=== PATIENT | female | born 1970 | race Caucasian/White ===

== ENCOUNTER → 2017-06-17 12:58 | Outpatient (CLI) | payer OTHER, SELFPAY ==
--- NOTE | 2017-06-17 13:03 | BI_ITS ---
MAMMOGRAPHY - BILATERAL SCREENING REASON FOR EXAM: Female, 46 years old. Routine annual screening examination. PERTINENT HISTORY: Reason for Procedure (BI), FM HX MAT GRANDFATHER AGE 70'S , RT STEREO BX 2006 TECHNIQUE: Digital bilateral breast giorgio (3D mammographic acquisition) in the CC and MLO projections. 2-D mediolateral oblique (MLO) and craniocaudad (CC) views of both breasts were obtained. CAD: Full Field Digital Mammography with Computer Added Detection was performed. COMPARISON: None. FINDINGS: Breast Composition: The breasts are heterogeneously dense, which may obscure small masses. There is an asymmetric density with architectural distortion in the far posterior central part of the right breast noted on the MLO view for which further evaluation by spot compression views and ultrasound would be recommended. There are no suspicious calcifications. No other significant abnormalities are identified. BI/SCREENING MAMM (CAD), BILAT IMPRESSION: Further imaging evaluation recommended, as described above. (E) ASSESSMENT CATEGORY: BIRADS Category 0: Incomplete. Need additional imaging evaluation. A letter regarding these results will be sent to the patient by the facility within 30 days. Approximately 10% of breast cancers are not detected by mammography. A normal mammogram should not delay biopsy of a clinically suspicious abnormality. [id number] Electronically Signed: Nessa Garza MD at 13:09 EDT Tel , Service support ,
== END ==
PROVIDERS: Visit Provider Obstetrics & Gynecology
DX: Z12.31 Encounter for screening mammogram for malignant neoplasm of breast (principal)
CPT/HCPCS: 77063; 77067

== ENCOUNTER → 2017-06-26 08:04 | Outpatient (CLI) | payer OTHER, SELFPAY ==
--- NOTE | 2017-06-26 08:07 | BI_ITS ---
MAMMOGRAPHY - UNILATERAL DIAGNOSTIC: RIGHT BREAST REASON FOR EXAM: Female, 46 years old. Abnormal screening mammogram. PERTINENT HISTORY: Non-contributory. TECHNIQUE: A compression spot view of the right breast was obtained in the mediolateral oblique view. CAD: Full Field Digital Mammography with Computer Added Detection was performed. COMPARISON: Comparison is made with prior mammogram dated June 17, 2017. FINDINGS: Breast Composition: The breasts are heterogeneously dense, which may obscure small masses. The focal area of architectural distortion in the far posterior central portion of the right breast is not seen on this examination. Routine annual mammographic follow-up is recommended. No other significant abnormalities are identified. BI/DIAG MAMM W/CAD, UNILAT IMPRESSION: Stable unilateral diagnostic mammogram. One year follow-up mammogram recommended. (A) ASSESSMENT CATEGORY: BIRADS Category 2: Benign. A letter regarding these results will be sent to the patient by the facility within 30 days. Approximately 10% of breast cancers are not detected by mammography. A normal mammogram should not delay biopsy of a clinically suspicious abnormality. Electronically Signed: Lebron Vela MD at 10:38 EDT Tel [phone], Service support ,
== END ==
PROVIDERS: Visit Provider Obstetrics & Gynecology
DX: R92.8 Other abnormal and inconclusive findings on diagnostic imaging of breast (principal)
CPT/HCPCS: 77065

== ENCOUNTER 2017-10-16 12:22 | Day surgery (SDC) | payer OTHER, SELFPAY ==
[2017-10-16] VITALS (7 sets, daily range): BP systolic 95–106; BP diastolic 48–66; PULSE 69–82; RESP 16; TEMP 36.6–37.1; O2SAT 92–99; BMI 27.6
--- NOTE | 2017-10-16 | COLBX_PTH ---
PATIENT: FABIOLA TAYLOR LOC: EN U#:[id number] AGE/SX: 47/F ROOM: RE10/16/[address]: Dr. Bharat Dee MD : 1970 BED: DIS: 10/16/2017 SPEC #: [id number] RECD: 10/17/17 09:14 STATUS: KATHLEEN JUANA #: [id number] MALIK: 10/16/17 00:[address]: Bharat Dee DEPT: SURGICAL PATHOLOGY RECD BY: Jacob Hanks ENTERED: 10/17/17 09:15 SP TYPE: COLON BX SAM DR: Dr. Salvatore Gonzales MD Tissues: COLON BIOPSY Procedures: Surgery Specimen Level IV HEADER OPERATION: Colonoscopy PRE-OP DIAGNOSIS: Change in bowel habits; family history of colon cancer TISSUE SUBMITTED: Random colonic biopsies MICROSCOPIC DIAGNOSIS Colon, random biopsy: No significant pathologic change. No evidence of colitis. AM:carlos 10/18/17 MICROSCOPIC DESCRIPTION Slides are reviewed. GROSS DESCRIPTION Received in fixative is one container labeled with the patient's name and designated random colon biopsy. The specimen consists of multiple irregular fragments of light bonner soft tissue that in aggregate measure 1.5 x 0.7 x 0.1 cm. The specimen is totally submitted in one cassette. / AM:carlos 10/17/17 TC:5 CPT: 31040
--- NOTE | 2017-10-16 13:17 | PCM.OPRPT ---
Problem List (1) Family history of colon cancer Status: Acute (2) Lower abdominal pain Status: Acute (3) Change in bowel habits Status: Acute Report of Operation Date of Procedure: 10/16/17 Pre-Operative Diagnosis: Family history of colon cancer. Lower abdominal pain. Change in bowel habits Post-Operative Diagnosis: Same Surgery/Procedure Performed:: Colonoscopy with cold biopsies (random) Type of Anesthesia:: MAC Description of Procedure: Patient was brought into the endoscopy suite placed in the left lateral decubitus position. She was given graded anesthesia. Colonoscope was inserted into the rectum. It was directed through the sigmoid colon, descending colon, transverse colon, descending colon, to the cecum. Operative findings: 1. Cecum: Normal appearance no mass lesions normal ileocecal valve. 2. Ascending colon: Normal appearance no mass lesions. 3. Transverse colon: Normal appearance no mass lesions. 4. Descending colon: Normal appearance no mass lesions. 5. Sigmoid colon: Normal appearance minimal diverticular disease seen mostly smaller diverticulum a few large mouth diverticulum there was no narrowing of the sigmoid colon there were no mass lesions. 6. Rectum: Normal appearance no mass lesions few internal hemorrhoids were identified. Digital rectal exam did not reveal any masses within the anus. Random colonic biopsies were performed from the cecum to the rectum. For all intensive purposes and entirely normal colonoscopy with no abnormalities identified to explain the lower abdominal discomfort. - Admit VTE Documentation VTE Present on Admission: No VTE Mechan Device Prophylaxis: None VTE Pharm Prophylaxis ordered?: No Reason prophylaxis not ordered:: Treatment Not Indicated
== END 2017-10-16 14:19 | disposition home or self-care (01) ==
LOC: EN 12:23 → AC 12:24
PROVIDERS: Family Provider Internal Medicine; PCP Internal Medicine; Visit Provider Surgery
PROC: 0DJD8ZZ Inspection of Lower Intestinal Tract, Via Natural or Artificial Opening Endoscopic (ICD-10-PCS; CPT 45378; principal; 2017-10-16 13:25)
DX: K57.30 Diverticulosis of large intestine without perforation or abscess without bleeding (principal); D64.9 Anemia, unspecified; Z80.0 Family history of malignant neoplasm of digestive organs; Z85.828 Personal history of other malignant neoplasm of skin; Z87.891 Personal history of nicotine dependence
CPT/HCPCS: 45380; 88305; J7120

== ENCOUNTER → 2018-07-18 07:17 | Outpatient (CLI) | payer OTHER, SELFPAY ==
--- NOTE | 2018-07-18 07:32 | BI_ITS ---
MAMMOGRAPHY - BILATERAL SCREENING REASON FOR EXAM: Female, 47 years old. Routine annual screening examination. PERTINENT HISTORY: Grandfather with breast cancer. Prior right stereotactic breast biopsy. TECHNIQUE: Digital bilateral breast светлана (3D mammographic acquisition) in the CC and MLO projections. 2-D mediolateral oblique (MLO) and craniocaudad (CC) views of both breasts were obtained. CAD: Full Field Digital Mammography with Computer Added Detection was performed. COMPARISON: Comparison is made with prior study dated June 17, 2017 and June 26, 2017. FINDINGS: Breast Composition: The breasts are heterogeneously dense, which may obscure small masses. There are no dominant masses or suspicious calcifications. A tissue clip marker is seen in the axillary region of the right breast from prior biopsy. This is unchanged. No other significant abnormalities are identified. There has been no significant change since the prior study. BI/SCREEN MAMM (CAD) W/СВЕТЛАНА BILAT IMPRESSION: Stable bilateral screening mammogram. Yearly follow-up mammogram recommended. (A) ASSESSMENT CATEGORY: BIRADS Category 2: Benign. A letter regarding these results will be sent to the patient by the facility within 30 days. Approximately 10% of breast cancers are not detected by mammography. A normal mammogram should not delay biopsy of a clinically suspicious abnormality. [id number] Electronically Signed: Lebron Vela, at 10:00 EDT , Service support ,
== END ==
PROVIDERS: Family Provider Internal Medicine; PCP Internal Medicine; Referring Provider Obstetrics & Gynecology; Visit Provider Obstetrics & Gynecology
DX: Z12.31 Encounter for screening mammogram for malignant neoplasm of breast (principal)
CPT/HCPCS: 77063; 77067

== ENCOUNTER → 2018-10-15 | Outpatient (CLI) | payer OTHER, SELFPAY ==
[2018-10-14 08:31] VITALS: BMI 26.3
[2018-10-15 12:10] LABS: Absolute Lymphocyte Count 1.77 X10^3/uL (0.83-4.51); Absolute Neutrophil Count 3.9 X10^3/uL (2.0-7.7); Basophil# 0.04 X10^3/uL; Basophil% 0.6 % (0-1); Eosinophils% 1.6 % (0-5); Hematocrit 39.9 % (37-47); Hemoglobin 12.5 g/dL (12.0-15.0); Lymphocyte # 1.77 X10^3/ul (4.0); Lymphocyte % 28.3 % (19-41); Mean Corp Hgb Conc 31.3 g/dL (32-36); Mean Corpuscular Hgb 27.4 pg (27.0-32.0); Mean Corpuscular Volume 87.3 fL (81-99); Mean Platelet Vol. 10.2 fl (6.2-12.0); Monocyte# 0.42 X10^3/uL; Monocyte% 6.7 % (0-10); NRBC Flagged by Analyzer 0 % (0-5); Neutrophil # 3.91 X10^3/uL (2.7-7.7); Neutrophil % 62.5 % (47-70); Platelet Count 231 K/mm3 (150-450); RBC Distribution Width CV 13.3 % (11.6-14.6); RBC Distribution Width SD 42.3 fl (35.1-43.9); Red Blood Count 4.57 M/mm3 (4.2-5.4); White Blood Count 6.3 K/mm3 (4.4-11.0)
[2018-10-15 12:30] LABS: AST(SGOT) 14 U/L (15-37); Alanine Aminotransfer ALT/SGPT 32 U/L (13-56); Albumin, Serum 3.9 g/dL (3.2-5.0); Alkaline Phosphatase 97 U/L (45-117); Anion Gap 8 (5-15); BUN 12 mg/dL (7-18); BUN/Creat Ratio 15.8 RATIO (10-20); Chloride 104 mmol/L (98-107); Cholesterol 225 mg/dL (200); Creatinine, Serum 0.76 mg/dL (0.55-1.02); EST Glomerular Filtration Rate 86 mL/min (>60); Est Glom Filt Rate - Afr Amer 104 mL/min (>60); Globulin 3.9 g/dL (2.2-4.2); Glucose 84 mg/dL (74-106); High Density Lipoprotein 74 mg/dL; Protein, Total 7.8 g/dL (6.4-8.2); Sodium Level 140 mmol/L (136-145); Triglycerides 111 mg/dL; Very Low Density Lipoprotein 22 mg/dL (5-40)
== END | disposition home or self-care (01) ==
LOC: BIMLAB 08:10
PROVIDERS: Family Provider Internal Medicine; PCP Internal Medicine; Visit Provider Internal Medicine
DX: Z00.00 Encounter for general adult medical examination without abnormal findings (principal)
CPT/HCPCS: 36415; 80053; 80061; 85025

== ENCOUNTER → 2019-02-19 09:29 | Outpatient (CLI) | payer OTHER, SELFPAY ==
[2019-02-19 09:08] VITALS: BMI 27.2
[2019-02-19 12:21] LABS: Hemoglobin 11.6 g/dL (12.0-15.0); Mean Corp Hgb Conc 32.2 g/dL (32-36); Mean Corpuscular Hgb 28.3 pg (27.0-32.0); Mean Corpuscular Volume 87.8 fL (81-99); Mean Platelet Vol. 9.9 fl (6.2-12.0); Platelet Count 265 K/mm3 (150-450); RBC Distribution Width CV 13.4 % (11.6-14.6); White Blood Count 5.7 K/mm3 (4.4-11.0)
[2019-02-19 12:39] LABS: Vitamin D,25 Hydroxy 16.9 ng/mL (29.95-100.01)
[2019-02-19 12:42] LABS: ALB/GLOB Ratio 1.1 RATIO (0.9-2.4); AST(SGOT) 14 U/L (15-37); Alanine Aminotransfer ALT/SGPT 29 U/L (13-56); Albumin, Serum 3.9 g/dL (3.2-5.0); Alkaline Phosphatase 90 U/L (45-117); Anion Gap 3 (5-15); BUN 10 mg/dL (7-18); BUN/Creat Ratio 13.7 RATIO (10-20); Calcium,Total 8.7 mg/dL (8.5-10.1); Chloride 106 mmol/L (98-107); Creatinine, Serum 0.73 mg/dL (0.55-1.02); EST Glomerular Filtration Rate 90 mL/min (>60); Est Glom Filt Rate - Afr Amer 109 mL/min (>60); Globulin 3.6 g/dL (2.2-4.2); Glucose 73 mg/dL (74-106); Potassium 4.2 mmol/L (3.5-5.1); Protein, Total 7.5 g/dL (6.4-8.2); Sodium Level 139 mmol/L (136-145); Thyroid Stim Hormone (TSH) 1.24 uIU/mL (0.358-3.74)
== END ==
PROVIDERS: Family Provider Internal Medicine; PCP Internal Medicine; Visit Provider Nurse Practitioner Family
DX: E56.9 Vitamin deficiency, unspecified (principal); R53.83 Other fatigue
CPT/HCPCS: 36415; 80053; 82306; 84443; 85027

== ENCOUNTER → 2019-07-20 | Outpatient (CLI) | payer OTHER, SELFPAY ==
[2019-03-31 09:27] VITALS: BMI 26.8
--- NOTE | 2019-07-20 08:03 | BI_ITS ---
MAMMOGRAPHY - BILATERAL SCREENING REASON FOR EXAM: Female, 48 years old. Routine annual screening examination. PERTINENT HISTORY: Remote right stereotactic breast biopsy. Grandfather with breast cancer. TECHNIQUE: Digital bilateral breast светлана (3D mammographic acquisition) in the CC and MLO projections. 2-D mediolateral oblique (MLO) and craniocaudad (CC) views of both breasts were obtained. CAD: Full Field Digital Mammography with Computer Added Detection was performed. COMPARISON: Comparison is made with prior examination dated July 18, 2018 and June 17, 2017. FINDINGS: Breast Composition: The breasts are heterogeneously dense, which may obscure small masses. There are no dominant masses or suspicious calcifications. A tissue clip marker is once again seen in the deep upper lateral portion of the right breast. No other significant abnormalities are identified. There has been no significant change since the prior study. BI/SCREEN MAMM (CAD) W/СВЕТЛАНА BILAT IMPRESSION: Stable bilateral screening mammogram. Yearly follow-up mammogram recommended. (A) ASSESSMENT CATEGORY: BIRADS Category 2: Benign. A letter regarding these results will be sent to the patient by the facility within 30 days. Approximately 10% of breast cancers are not detected by mammography. A normal mammogram should not delay biopsy of a clinically suspicious abnormality. [id number] Electronically Signed: Lebron Vela, at 9:16 EDT , Service support ,
== END | disposition home or self-care (01) ==
LOC: OPBI 08:03
PROVIDERS: PCP Internal Medicine; Referring Provider Obstetrics & Gynecology; Visit Provider Obstetrics & Gynecology
DX: Z12.31 Encounter for screening mammogram for malignant neoplasm of breast (principal)
CPT/HCPCS: 77063; 77067

== ENCOUNTER → 2020-07-25 07:03 | Outpatient (CLI) | payer OTHER, SELFPAY ==
[2019-09-01 08:29] VITALS: BMI 27.2
--- NOTE | 2020-07-25 07:06 | BI_ITS ---
MAMMOGRAPHY - BILATERAL SCREENING REASON FOR EXAM: Female, 49 years old. Routine annual screening examination. PERTINENT HISTORY: Grandfather with breast cancer. Prior right stereotactic breast biopsy. TECHNIQUE: Digital bilateral breast светлана (3D mammographic acquisition) in the CC and MLO projections. 2-D mediolateral oblique (MLO) and craniocaudad (CC) views of both breasts were obtained. CAD: Full Field Digital Mammography with Computer Added Detection was performed. COMPARISON: Comparison is made with prior study dated 07/20/2019 and 07/18/2018. FINDINGS: Breast Composition: The breasts are heterogeneously dense, which may obscure small masses. There are no dominant masses or suspicious calcifications. A patient clip markers once again seen in the upper lateral portion of the right breast. Stable asymmetry of breast tissue were more breast tissue is seen in the axillary region of the left breast as compared to the right side. No other significant abnormalities are identified. There has been no significant change since the prior study. BI/SCRN MAMM (CAD)W/СВЕТЛАНА BILAT IMPRESSION: Stable bilateral screening mammogram. Yearly follow-up mammogram recommended. (A) ASSESSMENT CATEGORY: BIRADS Category 2: Benign. A letter regarding these results will be sent to the patient by the facility within 30 days. Approximately 10% of breast cancers are not detected by mammography. A normal mammogram should not delay biopsy of a clinically suspicious abnormality. [id number] Electronically Signed: Lebron Vela MD at 9:44 EDT , Service support ,
== END ==
PROVIDERS: PCP Internal Medicine; Referring Provider Nurse Practitioner Women's Health; Visit Provider Nurse Practitioner Women's Health
DX: Z12.31 Encounter for screening mammogram for malignant neoplasm of breast (principal)
CPT/HCPCS: 77063; 77067

== ENCOUNTER → 2020-11-01 16:04 | Outpatient (CLI) | payer OTHER, SELFPAY ==
[2020-11-01 16:56] LABS: Absolute Lymphocyte Count 2.14 X10^3/uL (0.83-4.51); Absolute Neutrophil Count 4.4 X10^3/uL (2.0-7.7); Basophil# 0.04 X10^3/uL; Basophil% 0.6 % (0-1); Eosinophil# 0.11 X10^3/uL; Eosinophils% 1.5 % (0-5); Hematocrit 41.9 % (37-47); Hemoglobin 13.6 g/dL (12.0-15.0); Lymphocyte # 2.14 X10^3/ul (0.83-4.51); Lymphocyte % 30.1 % (19-41); Mean Corp Hgb Conc 32.5 g/dL (32-36); Mean Corpuscular Hgb 29.3 pg (27.0-32.0); Mean Corpuscular Volume 90.3 fL (81-99); Mean Platelet Vol. 9.6 fl (6.2-12.0); Monocyte# 0.43 X10^3/uL; Monocyte% 6.1 % (0-10); NRBC Flagged by Analyzer 0 % (0-5); Neutrophil # 4.35 X10^3/uL (2.7-7.7); Neutrophil % 61.3 % (47-70); Platelet Count 257 K/mm3 (150-450); RBC Distribution Width CV 13.6 % (11.6-14.6); RBC Distribution Width SD 44.2 fl (35.1-43.9); Red Blood Count 4.64 M/mm3 (4.2-5.4); White Blood Count 7.1 K/mm3 (4.4-11.0)
[2020-11-01 17:36] LABS: Vitamin D,25 Hydroxy 32.9 ng/mL
[2020-11-01 17:46] LABS: ALB/GLOB Ratio 1.1 RATIO (0.9-2.4); AST(SGOT) 26 U/L (15-37); Alanine Aminotransfer ALT/SGPT 46 U/L (13-56); Alkaline Phosphatase 116 U/L (45-117); Anion Gap 6 (5-15); BUN 8 mg/dL (7-18); BUN/Creat Ratio 11.8 RATIO (10-20); Calcium,Total 9.2 mg/dL (8.5-10.1); Chloride 102 mmol/L (98-107); Cholesterol 264 mg/dL (200); Creatinine, Serum 0.68 mg/dL (0.55-1.02); EST Glomerular Filtration Rate 98 mL/min (>60); Est Glom Filt Rate - Afr Amer 118 mL/min (>60); Globulin 3.8 g/dL (2.2-4.2); Glucose 80 mg/dL (74-106); High Density Lipoprotein 64 mg/dL; Potassium 3.6 mmol/L (3.5-5.1); Protein, Total 7.8 g/dL (6.4-8.2); Sodium Level 138 mmol/L (136-145); Thyroid Stim Hormone (TSH) 1.85 uIU/mL (0.358-3.74); Triglycerides 186 mg/dL; Very Low Density Lipoprotein 37 mg/dL (5-40)
== END ==
PROVIDERS: PCP Internal Medicine; Referring Provider Nurse Practitioner Family; Visit Provider Nurse Practitioner Family
DX: D64.9 Anemia, unspecified (principal); E56.9 Vitamin deficiency, unspecified; Z00.00 Encounter for general adult medical examination without abnormal findings
CPT/HCPCS: 36415; 80053; 80061; 82306; 84443; 85025

== ENCOUNTER → 2020-12-05 | Outpatient (CLI) | payer OTHER, SELFPAY ==
[2020-12-05 14:44] LABS: Probe Check ND; Specimen Processing Control ND
== END | disposition home or self-care (01) ==
LOC: LABSPEC 10:42
PROVIDERS: PCP Internal Medicine; Referring Provider Physician Assistant Surgical; Visit Provider Physician Assistant Surgical
DX: U07.1 COVID-19 (principal)
CPT/HCPCS: 87635; U0005; U0003

== ENCOUNTER 2020-12-08 16:49 | Outpatient (CLI) | payer OTHER, SELFPAY ==
[2020-12-08 16:56] VITALS: BP 126/89; PULSE 97; RESP 14; TEMP 37; O2SAT 97; BMI 26.9
[2020-12-08] MEDS: 0.9% Saline Lock 10 ML Syringe IV (16:56)
[2020-12-08 17:55] VITALS: BP 110/75; PULSE 80; RESP 16; TEMP 36.7; O2SAT 96
[2020-12-08 19:04] VITALS: BP 110/79; PULSE 73; RESP 16; TEMP 36.9; O2SAT 98
== END 2020-12-08 18:55 | disposition home or self-care (01) ==
LOC: MS3OUT 16:50 → MS3 16:50
PROVIDERS: PCP Internal Medicine; Referring Provider Nurse Practitioner Adult Health; Visit Provider Nurse Practitioner Adult Health
DX: Z23 Encounter for immunization (principal); U07.1 COVID-19
CPT/HCPCS: J7050; M0243; A4216; Q0244

== ENCOUNTER → 2021-02-03 14:44 | Outpatient (CLI) | payer OTHER, SELFPAY ==
[2021-02-03 14:45] LABS: Bacteria 0 SEEN /hpf (None Seen); Mucous, Urine 0 SEEN /hpf (<or=2+); Squamous Epithelial Cells - UA 0 SEEN /hpf (5-10); White Blood Cells 0 SEEN /hpf (0-5)
[2021-02-03 16:40] LABS: Color, Urine Yellow (Yellow); Glucose, Dipstick Normal (Normal); Ketone-Dipstick Negative (Negative); Leukocyte Esterase-Dipstick Negative /ul (Negative); Nitrite-Dipstick Negative (Negative); Occult Blood-Urine 10 /ul (Negative); Protein-Dipstick Negative (Negative); Urine Bilirubin Dipstick Negative (Negative); Urine Clarity Clear (Clear); Urine Urobilinogen Normal (Normal); Urine pH 6.5 (5.0 - 8.0)
[2021-02-03 16:50] LABS: Red Blood Cells-Urine 0-5 SEEN /hpf (0-5)
[2021-02-03 16:55] LABS: Absolute Lymphocyte Count 2.12 X10^3/uL (0.83-4.51); Absolute Neutrophil Count 4.5 X10^3/uL (2.0-7.7); Basophil# 0.03 X10^3/uL; Basophil% 0.4 % (0-1); Eosinophil# 0.12 X10^3/uL; Eosinophils% 1.7 % (0-5); Hemoglobin 11.2 g/dL (12.0-15.0); Lymphocyte # 2.12 X10^3/ul (0.83-4.51); Lymphocyte % 29.4 % (19-41); Mean Corp Hgb Conc 32.9 g/dL (32-36); Mean Corpuscular Hgb 30.4 pg (27.0-32.0); Mean Corpuscular Volume 92.4 fL (81-99); Mean Platelet Vol. 9.7 fl (6.2-12.0); Monocyte# 0.45 X10^3/uL; Monocyte% 6.2 % (0-10); NRBC Flagged by Analyzer 0 % (0-5); Neutrophil # 4.49 X10^3/uL (2.7-7.7); Neutrophil % 62.2 % (47-70); Platelet Count 261 K/mm3 (150-450); Red Blood Count 3.68 M/mm3 (4.2-5.4); White Blood Count 7.2 K/mm3 (4.4-11.0)
[2021-02-03 17:04] LABS: AST(SGOT) 15 U/L (15-37); Alanine Aminotransfer ALT/SGPT 29 U/L (13-56); Albumin, Serum 3.7 g/dL (3.2-5.0); Alkaline Phosphatase 105 U/L (45-117); Amylase 32 U/L (25-115); Anion Gap 5 (5-15); BUN 8 mg/dL (7-18); Chloride 108 mmol/L (98-107); Creatinine, Serum 0.67 mg/dL (0.55-1.02); EST Glomerular Filtration Rate 99 mL/min (>60); Est Glom Filt Rate - Afr Amer 120 mL/min (>60); Globulin 3.6 g/dL (2.2-4.2); Glucose 105 mg/dL (74-106); Lipase 92 U/L (73-393); Potassium 3.8 mmol/L (3.5-5.1); Protein, Total 7.3 g/dL (6.4-8.2); Sodium Level 141 mmol/L (136-145); Thyroid Stim Hormone (TSH) 1.46 uIU/mL (0.358-3.74)
== END ==
PROVIDERS: PCP Internal Medicine; Visit Provider Physician Assistant
DX: R10.9 Unspecified abdominal pain (principal); R19.7 Diarrhea, unspecified
CPT/HCPCS: 36415; 80053; 81001; 82150; 83690; 84443; 85025; 87635; U0005; U0003

== ENCOUNTER 2021-03-17 07:57 | Outpatient (CLI) | payer OTHER, SELFPAY ==
--- NOTE | 2021-03-17 08:00 | US_ITS ---
STUDY: ABDOMINAL ULTRASOUND REASON FOR EXAM: Female, 50 years old. Abdominal pain TECHNIQUE: Transabdominal ultrasound was performed with real-time and static beckford scale imaging. TECHNICAL QUALITY: Adequate. COMPARISON: None. FINDINGS: Liver: The liver measures 15.4 cm. There is normal echogenicity of the liver. The bile ducts are within normal limits. There is hepatic color flow. The direction of portal flow is hepatopetal. There is no demonstrated mass lesion. Gallbladder: Normal distended gallbladder. The gallbladder wall measures 3 mm. There is a negative sonographic Harkins''s sign. There is no pericholecystic fluid. There are no gallstones. Common Bile Duct (C.B.D.): The common bile duct measures 6 mm. Pancreas: Normal size of the head, body and tail of the pancreas. There is normal echogenicity of the pancreas. There is no demonstrated pancreatic mass or cyst. Spleen: Normal size of the spleen. The spleen measures 8.8 cm x 4.9 cm x 2.8 cm. Right Kidney: Normal size of the right kidney. The right kidney measures 11.2 cm x 5.3 cm x 4.4 cm. Normal renal cortex. The right cortex measures 1.2 cm. There is no demonstrated renal mass or cyst. There is no right hydronephrosis. Left Kidney: Normal size of the left kidney. The left kidney measures 10.6 cm x 4.8cm x 5.1 cm. Normal renal cortex. The left cortex measures 1.4 cm. There is a 4 mm x 4 mm x 5 mm well-defined echogenic nodule in the upper pole of the left kidney. This may represent a small angiomyolipoma. There is no left hydronephrosis. Aorta: Unremarkable. I.V.C.: The IVC is patent. There is no ascites. 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 No other abnormality is seen. Electronically Signed: Lebron Vela MD at 11:00 EST ,
== END 2021-03-17 23:59 | disposition short-term general hospital (02) ==
LOC: US 07:59
PROVIDERS: PCP Internal Medicine; Referring Provider Internal Medicine; Visit Provider Internal Medicine
DX: R10.31 Right lower quadrant pain (principal); G89.29 Other chronic pain
CPT/HCPCS: 76700

== ENCOUNTER 2021-04-18 08:45 | Outpatient (CLI) | payer OTHER, SELFPAY ==
[2021-04-18 12:26] LABS: Absolute Lymphocyte Count 1.92 X10^3/uL (0.83-4.51); Absolute Neutrophil Count 3.4 X10^3/uL (2.0-7.7); Basophil# 0.03 X10^3/uL; Basophil% 0.5 % (0-1); Eosinophil# 0.06 X10^3/uL; Hematocrit 41.9 % (37-47); Hemoglobin 13.5 g/dL (12.0-15.0); Lymphocyte # 1.92 X10^3/ul (0.83-4.51); Lymphocyte % 33.2 % (19-41); Mean Corp Hgb Conc 32.2 g/dL (32-36); Mean Corpuscular Hgb 29.3 pg (27.0-32.0); Mean Corpuscular Volume 91.1 fL (81-99); Mean Platelet Vol. 9.8 fl (6.2-12.0); Monocyte# 0.32 X10^3/uL; Monocyte% 5.5 % (0-10); NRBC Flagged by Analyzer 0 % (0-5); Neutrophil # 3.44 X10^3/uL (2.7-7.7); Neutrophil % 59.5 % (47-70); Platelet Count 232 K/mm3 (150-450); RBC Distribution Width CV 12.2 % (11.6-14.6); RBC Distribution Width SD 40.3 fl (35.1-43.9); White Blood Count 5.8 K/mm3 (4.4-11.0)
[2021-04-18 12:48] LABS: Vitamin B12 1446 pg/mL (211-911)
[2021-04-18 13:44] LABS: Ferritin 97 ng/mL (8-252); Iron 69 ug/dL (50-170); Iron Binding Capacity,Total 344 ug/dL (250-450)
== END 2021-04-18 23:59 | disposition home or self-care (01) ==
LOC: BIMLAB 08:46
PROVIDERS: PCP Internal Medicine; Referring Provider Internal Medicine; Visit Provider Internal Medicine
DX: D64.9 Anemia, unspecified (principal)
CPT/HCPCS: 36415; 82607; 82728; 82746; 83540; 83550; 85025

== ENCOUNTER → 2021-07-28 | Outpatient (CLI) | payer OTHER, SELFPAY ==
--- NOTE | 2021-07-28 12:20 | BI_ITS ---
MAMMOGRAPHY - BILATERAL SCREENING REASON FOR EXAM: Female, 50 years old. Routine annual screening examination. PERTINENT HISTORY: Grandfather with breast cancer. Prior right''s stereotactic breast biopsy. TECHNIQUE: Digital bilateral breast светлана (3D mammographic acquisition) in the CC and MLO projections. 2-D mediolateral oblique (MLO) and craniocaudad (CC) views of both breasts were obtained. CAD: Full Field Digital Mammography with Computer Added Detection was performed. COMPARISON: Screening mammograms from 07/25/2020, 07/20/2019, 07/18/2018, 06/17/2017. Right breast diagnostic mammogram from 06/26/2017. FINDINGS: Breast Composition: The breasts are heterogeneously dense, which may obscure small masses. There are no dominant masses or suspicious calcifications. Stable biopsy marker in the right breast. No other significant abnormalities are identified. There has been no significant change since the prior study. BI/SCRN MAMM (CAD)W/СВЕТЛАНА BILAT IMPRESSION: Stable bilateral screening mammogram. Yearly follow-up mammogram recommended. (A) ASSESSMENT CATEGORY: BIRADS Category 2: Benign. A letter regarding these results will be sent to the patient by the facility within 30 days. Approximately 10% of breast cancers are not detected by mammography. A normal mammogram should not delay biopsy of a clinically suspicious abnormality. [id number] Electronically Signed: Carlos Salmeron, at 8:22 EDT ,
== END | disposition home or self-care (01) ==
LOC: OPBI 12:19
PROVIDERS: PCP Internal Medicine; Referring Provider Nurse Practitioner Women's Health; Visit Provider Nurse Practitioner Women's Health
DX: Z12.31 Encounter for screening mammogram for malignant neoplasm of breast (principal)
CPT/HCPCS: 77063; 77067

== ENCOUNTER → 2021-11-23 | Outpatient (CLI) | payer OTHER, SELFPAY ==
[2021-11-23 12:17] LABS: Absolute Lymphocyte Count 1.79 X10^3/uL (0.83-4.51); Absolute Neutrophil Count 3.5 X10^3/uL (2.0-7.7); Basophil# 0.03 X10^3/uL; Basophil% 0.5 % (0-1); Eosinophil# 0.08 X10^3/uL; Eosinophils% 1.4 % (0-5); Hematocrit 38.3 % (37-47); Lymphocyte # 1.79 X10^3/ul (0.83-4.51); Lymphocyte % 31.2 % (19-41); Mean Corp Hgb Conc 31.3 g/dL (32-36); Mean Corpuscular Hgb 29.3 pg (27.0-32.0); Mean Corpuscular Volume 93.6 fL (81-99); Monocyte# 0.35 X10^3/uL; Monocyte% 6.1 % (0-10); NRBC Flagged by Analyzer 0 % (0-5); Neutrophil # 3.47 X10^3/uL (2.7-7.7); Neutrophil % 60.5 % (47-70); Platelet Count 253 K/mm3 (150-450); RBC Distribution Width CV 13.3 % (11.6-14.6); RBC Distribution Width SD 45.6 fl (35.1-43.9); Red Blood Count 4.09 M/mm3 (4.2-5.4); White Blood Count 5.7 K/mm3 (4.4-11.0)
[2021-11-23 12:58] LABS: ALB/GLOB Ratio 1.1 RATIO (0.9-2.4); AST(SGOT) 14 U/L (15-37); Alanine Aminotransfer ALT/SGPT 27 U/L (13-56); Albumin, Serum 3.9 g/dL (3.2-5.0); Alkaline Phosphatase 95 U/L (45-117); Anion Gap 7 (5-15); BUN 9 mg/dL (7-18); BUN/Creat Ratio 10.9 RATIO (10-20); Calcium,Total 9.2 mg/dL (8.5-10.1); Chloride 106 mmol/L (98-107); Cholesterol 236 mg/dL (200); Creatinine, Serum 0.83 mg/dL (0.55-1.02); EST Glomerular Filtration Rate 77 mL/min (>60); Est Glom Filt Rate - Afr Amer 93 mL/min (>60); Globulin 3.5 g/dL (2.2-4.2); Glucose 99 mg/dL (74-106); High Density Lipoprotein 63 mg/dL; Potassium 3.9 mmol/L (3.5-5.1); Protein, Total 7.4 g/dL (6.4-8.2); Sodium Level 140 mmol/L (136-145); Triglycerides 145 mg/dL; Very Low Density Lipoprotein 29 mg/dL (5-40)
== END | disposition home or self-care (01) ==
LOC: BIMLAB 08:47
PROVIDERS: PCP Internal Medicine; Referring Provider Internal Medicine; Visit Provider Internal Medicine
DX: Z00.00 Encounter for general adult medical examination without abnormal findings (principal)
CPT/HCPCS: 36415; 80053; 80061; 85025

== ENCOUNTER → 2021-11-27 | Outpatient (CLI) | payer OTHER, SELFPAY ==
--- NOTE | 2021-11-27 06:53 | CT_ITS ---
STUDY: CT ABDOMEN WITH CONTRAST REASON FOR EXAM: Female, 51 years old. Chronic Right sided abdominal pain RADIATION DOSAGE (If Supplied By Facility): CTDIvol = ( 11.98 ) mGy, DLP = ( 387.25 ) mGycm TECHNIQUE: Transaxial images were obtained post I.V. administration of Oral and amp; IV Readi-CAT and amp; 100mL Isovue-370, and oral contrast. Sagittal and coronal images were reconstructed. Individualized dose optimization techniques were used for this CT. COMPARISON: None. FINDINGS: The visualized lung bases are unremarkable. The visualized portions of the heart are within normal limits. There is a cyst or hemangioma within the right lobe of the liver 12 mm in diameter. Further caudally in the medial segment left lobe there is a 3 mm cyst or hemangioma etiology cannot be excluded. Correlating the right lobe there are 2 hypoattenuating foci each approximately 4 mm in diameter likely tiny cysts or hemangiomas. Other etiology for any of these foci cannot be completely excluded. Normal gallbladder and extrahepatic biliary system. Normal spleen. Normal pancreas. Normal bilateral adrenal glands. Normal variant extrarenal pelvis left kidney. Both kidneys demonstrate prompt function. Normal variant extrarenal pelvis left Normal left kidney. Normal visualized stomach. Normal small intestine. Normal colon. The appendix is visualized and appears normal. Normal abdominal aorta. Normal inferior vena cava. Normal retroperitoneum. Normal abdominal wall. Facet arthropathy and degenerative disc disease L5-S1. CT/Abdomen WITH IV Contrast IMPRESSION: Multiple small cysts or hemangiomas within the liver measuring up to 12 mm in diameter. Mild fatty infiltration of liver. Normal variant extrarenal pelvis left kidney. Degenerative disc disease and facet arthropathy L5-S1. Electronically Signed: Brad Bravo MD, [facility] at 9:32 EDT ,
== END | disposition home or self-care (01) ==
PROVIDERS: PCP Internal Medicine; Referring Provider Internal Medicine; Visit Provider Internal Medicine
DX: R10.9 Unspecified abdominal pain (principal); G89.29 Other chronic pain
CPT/HCPCS: 74160; Q9967

== ENCOUNTER 2021-12-01 15:16 | Emergency (ER) | payer OTHER, SELFPAY ==
[2021-12-01 15:19] VITALS: BP 154/93; PULSE 92; RESP 14; TEMP 36.1; O2SAT 98
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
[2021-12-01 16:21] VITALS: BP 116/68; BP 121/80; BP 132/107; PULSE 72; PULSE 76
[2021-12-01] MEDS: 0.9% Normal Saline 1,000 ML 999 ML IV (16:21)
[2021-12-01 16:22] LABS: Absolute Lymphocyte Count 2.04 X10^3/uL (0.83-4.51); Absolute Neutrophil Count 4.5 X10^3/uL (2.0-7.7); Basophil# 0.03 X10^3/uL; Basophil% 0.4 % (0-1); Eosinophil# 0.04 X10^3/uL; Eosinophils% 0.6 % (0-5); Hematocrit 37.7 % (37-47); Hemoglobin 12.5 g/dL (12.0-15.0); Lymphocyte # 2.04 X10^3/ul (0.83-4.51); Mean Corp Hgb Conc 33.2 g/dL (32-36); Mean Corpuscular Hgb 30.2 pg (27.0-32.0); Mean Corpuscular Volume 91.1 fL (81-99); Mean Platelet Vol. 9.4 fl (6.2-12.0); Monocyte# 0.46 X10^3/uL; Monocyte% 6.5 % (0-10); NRBC Flagged by Analyzer 0 % (0-5); Neutrophil # 4.45 X10^3/uL (2.7-7.7); Neutrophil % 63.2 % (47-70); Platelet Count 253 K/mm3 (150-450); RBC Distribution Width SD 42.6 fl (35.1-43.9); Red Blood Count 4.14 M/mm3 (4.2-5.4)
[2021-12-01 16:40] LABS: Anion Gap 7 (5-15); BUN 8 mg/dL (7-18); BUN/Creat Ratio 12.4 RATIO (10-20); Calcium,Total 9.1 mg/dL (8.5-10.1); Chloride 108 mmol/L (98-107); Creatinine, Serum 0.64 mg/dL (0.55-1.02); EST Glomerular Filtration Rate 103 mL/min (>60); Est Glom Filt Rate - Afr Amer 125 mL/min (>60); Estimated Creatinine Clearance 3.96 ml/min; Glucose 99 mg/dL (74-106); Potassium 3.8 mmol/L (3.5-5.1); Sodium Level 142 mmol/L (136-145)
[2021-12-01 16:49] LABS: Amphetamine Urine VISTA NEGATIVE (<1000 ng/mL); Barbiturate Urine VISTA NEGATIVE (< 200 ng/mL); Benzodiazepine Urine VISTA NEGATIVE (< 200 ng/mL); Cocaine Urine VISTA NEGATIVE (< 300 ng/mL); Ecstacy Urine VISTA NEGATIVE (< 500 ng/mL); Methadone Urine VISTA NEGATIVE (< 300 ng/mL); PCP Urine VISTA NEGATIVE (< 25 ng/mL); THC Urine VISTA NEGATIVE (< 50 ng/mL); Vista UDS pH Range 7
[2021-12-01 18:02] VITALS: BP 118/79; PULSE 72; RESP 16; O2SAT 99
== END 2021-12-01 18:03 | disposition home or self-care (01) ==
PROVIDERS: Emergency Provider Emergency Medicine; PCP Internal Medicine; Visit Provider Emergency Medicine
DX: R40.4 Transient alteration of awareness (principal); R11.2 Nausea with vomiting, unspecified; H53.8 Other visual disturbances; Z87.891 Personal history of nicotine dependence
CPT/HCPCS: 80048; 80307; 85025; 96360; 99284; J7030

== ENCOUNTER → 2022-01-12 | Outpatient (CLI) | payer OTHER, SELFPAY ==
[2022-01-12 12:29] LABS: Erythrocyte Sedimentation Rate 19 mm/hr (0-30)
[2022-01-12 12:44] LABS: Amylase 40 U/L (25-115); CRP < 2.90 mg/L (0.0-3.0); Lipase 152 U/L (73-393)
[2022-01-15 12:08] LABS: Anti-Centromere B Ab <0.2 AI (0.0-0.9); Anti-Chromatin <0.2 AI (0.0-0.9); Anti-Jo <0.2 AI (0.0-0.9); Anti-Scleroderma-70 AB <0.2 AI (0.0-0.9); RNP Ab <0.2 AI (0.0-0.9); SJOGREN'S Anti-SS-A test 0.2 AI (0.0-0.9); SJOGREN'S Anti-SS-B test < 0.2 AI (0.0-0.9); Smith Ab <0.2 AI (0.0-0.9)
[2022-01-15 12:26] LABS: Anti-dsDNA Ab 1 IU/mL (0-9)
[2022-01-17 08:09] LABS: Albumin 4.1 g/dL (2.9-4.4); Alpha-1-Globulins 0.2 g/dL (0.0-0.4); Alpha-2-Globulins 0.9 g/dL (0.4-1.0); Cytoplasmic Ab (C-ANCA) <1:20 titer (Neg:<1:20); Gamma Globulin 0.8 g/dL (0.4-1.8); Immunoglobulin A 197 mg/dL (87-352); Immunoglobulin E 30 IU/mL (6-495); Immunoglobulin G 836 mg/dL (586-1602); Immunoglobulin M 29 mg/dL (26-217); PROEL- TOTAL PROTEIN 7.2 g/dL (6.0-8.5)
[2022-01-17 13:09] LABS: Perinuclear Ab (P-ANCA) <1:20 titer (Neg:<1:20)
== END | disposition home or self-care (01) ==
LOC: LAB 11:41
PROVIDERS: PCP Internal Medicine; Referring Provider Nurse Practitioner Adult Health; Visit Provider Nurse Practitioner Adult Health
DX: R10.33 Periumbilical pain (principal); R10.811 Right upper quadrant abdominal tenderness
CPT/HCPCS: 36415; 82150; 82784; 82785; 83690; 84165; 85652; 86140; 86225; 86235; 86256; 86334

== ENCOUNTER → 2022-01-13 | Outpatient (CLI) | payer OTHER, SELFPAY ==
[2022-01-16 15:09] LABS: Fats, Neutral Normal (.); Fats, Total Increased (.)
[2022-01-17 13:06] LABS: Pancreatic Elastase, Fecal 206 (>200)
== END | disposition home or self-care (01) ==
LOC: LAB 09:44
PROVIDERS: PCP Internal Medicine; Referring Provider Nurse Practitioner Adult Health; Visit Provider Nurse Practitioner Adult Health
DX: R10.33 Periumbilical pain (principal); R10.811 Right upper quadrant abdominal tenderness
CPT/HCPCS: 82653; 82705

== ENCOUNTER → 2022-01-22 | Outpatient (CLI) | payer OTHER, SELFPAY ==
[2022-01-23 15:08] LABS: Endomysial Antibody IgA Negative (Negative); Immunoglobulin A 195 mg/dL (87-352)
[2022-01-23 20:54] LABS: Anti-Mitochondrial AB <20.0 Units (0.0-20.0); Anti-Smooth Muscle ABS 4 Units (0-19); t-Transglutaminase IgA <2 U/mL (0-3)
== END | disposition home or self-care (01) ==
PROVIDERS: PCP Internal Medicine; Referring Provider Nurse Practitioner Adult Health; Visit Provider Nurse Practitioner Adult Health
DX: K90.9 Intestinal malabsorption, unspecified (principal); R10.811 Right upper quadrant abdominal tenderness
CPT/HCPCS: 36415; 82784; 83516; 86255

== ENCOUNTER → 2022-02-07 | Outpatient (CLI) | payer OTHER, SELFPAY ==
--- NOTE | 2022-02-07 09:50 | NM_ITS ---
CLINICAL: 51-year-old female with history of right upper quadrant abdominal pain. RADIONUCLIDE HEPATOBILIARY SCINTIGRAPHY COMPARISON: None available FINDINGS: Following the intravenous administration of 5.2 mCi of 99m Tc Mebrofenin, hepatobiliary images reveal: 1. Relatively prompt and homogeneous radiopharmaceutical concentration is noted by a normal sized liver. No parenchymal defects are identified. 2. Gallbladder activity is identified at 30 minutes post radiopharmaceutical administration. 3. Small intestinal tract is observed at 45 minutes following tracer injection. 4. Washout of the radiopharmaceutical by the hepatic parenchyma appears qualitatively normal. Cholecystokinin (0.02 ug/kg) was administered intravenously over a 30-minute period. The post CCK gallbladder ejection fraction calculated at 20 minutes following Cholecystokinin administration was noted to be 48.06 % (normal greater than 35%). During 30 minutes of post CCK imaging, there is no scintigraphic evidence of reflux of the radiotracer into the common hepatic duct or refilling of the gallbladder. There is scintigraphic evidence of post CCK duodenal gastric reflux. NM/Hepatobilliary Img w/Pharm Int IMPRESSION: 1. A gallbladder ejection fraction calculated to be greater than 35% following the administration of Cholecystokinin makes the probability of functional hepatobiliary disease (gallbladder and/or sphincter of Oddi dyskinesia) and/or organic hepatobiliary disease (chronic acalculous cholecystitis and/or cystic duct syndrome) to be low. (Darrius Aguilera et al, Journal of Nuclear Medicine 32:1695, 1990). 2. There is scintigraphic evidence of post CCK duodenal-gastric reflux. (Adrian et al, Nucl Med [place]ilo [place] Press pg. 35, 1980). Electronically Signed: Daniel Mitchell, at 15:24 EST ,
== END | disposition home or self-care (01) ==
PROVIDERS: PCP Internal Medicine; Referring Provider Nurse Practitioner Adult Health; Visit Provider Nurse Practitioner Adult Health
DX: R10.811 Right upper quadrant abdominal tenderness (principal); R10.33 Periumbilical pain
CPT/HCPCS: 78227; A9537; J2805

== ENCOUNTER 2022-03-12 08:13 | Day surgery (SDC) | payer OTHER, SELFPAY ==
[2022-03-12] VITALS (7 sets, daily range): BP systolic 102–113; BP diastolic 58–66; PULSE 73–90; RESP 16–18; TEMP 36.9–37; O2SAT 92–99; BMI 26.2
--- NOTE | 2022-03-12 | EGD_PTH ---
PATIENT: FABIOLA TAYLOR LOC: EN U#:[id number] AGE/SX: 51/F ROOM: RE03/12/[address]: Dr. Jamaal Poe DO : 1970 BED: DIS: 03/12/2022 SPEC #: [id number] RECD: 03/12/22 09:57 STATUS: KATHLEEN JUANA #: [id number] MALIK: 03/12/22 00:[address]: Jamaal Poe DEPT: SURGICAL PATHOLOGY RECD BY: Radha Wright ENTERED: 03/12/22 11:26 SP TYPE: EGD BIOPSY SAM DR: Dr. Salvatore Gonzales MD Tissues: A - Duodenum, NOS B - Esophagus, NOS Procedures: Surgery Specimen Level IV HEADER OPERATION: EGD ([facility]), biopsy PRE-OP DIAGNOSIS: Periumbilical abdominal pain, RUQ abdominal tenderness TISSUE SUBMITTED: A ? Duodenum biopsy, B ? Distal esophagus biopsy MICROSCOPIC DIAGNOSIS A. Duodenum, biopsy: Fragments of duodenal mucosa with Maryjo gland hyperplasia. B. Distal esophagus, biopsy: Fragments of gastric mucosa with moderate chronic inflammation. Intestinal metaplasia (goblet cell metaplasia) not identified. See comment. ELIZA:carlos 03/13/2022 COMMENT B. Alcian blue/PAS stain with matched control is used in the evaluation of the specimen. MICROSCOPIC DESCRIPTION Slides are reviewed. GROSS DESCRIPTION A - Received in fixative is one container labeled with the patient's name and designated duodenal biopsy. The specimen consists of multiple irregular fragments of light bonner soft tissue that in aggregate measure 1.3 x 0.3 x 0.1 cm. The specimen is totally submitted in one cassette. B - Received in fixative is one container labeled with the patient's name and designated distal esophagus biopsy. The specimen consists of multiple irregular fragments of light bonner soft tissue that in aggregate measure 0.8 x 0.8 x 0.1 cm. The specimen is totally submitted in one cassette. / ELIZA:carlos 03/12/2022 TC:3 CPT: 59554 x2
[2022-03-12] MEDS: Lactated Ringers 1,000 ML 15 ML IV (08:25)
--- NOTE | 2022-03-12 08:47 | HP.PCM_ITS ---
History and Physical Date of Admission: 03/12/22 FABIOLA TAYLOR, is a 51 F who presents to the office today for abdominal pains. She gets abdominal pains in 2 locations, both of which started in early 2021. The more severe pain is periumbilical, are associated with bloating. Feels poorly in general when this happens. Pain is burning, stabbing. Doesn't radiate. Gets nausea but no vomiting. Had diarrhea with it once. Lasts about 24 hours. Has had 3 bad episodes, but can have less severe pain also in the periumbilical region--that happens 1-2x per month. No relieving factors. Can be worse with movement sometimes. Not related to certain foods, not related to eating, can't discern any pattern. Slight relief of nausea with bland foods, but no relief of pain. No relief with TUMS, famotidine. Also gets pain in right side of abd that she thought might be gallbladder. US and CT unremarkable. Different from the periumbilical pain. Less often than the periumbilical pain, and less frequent. Not related to eating. Takes a probiotic. Used to have daily BM, felt like bowels emptied. Denies constipation yet feels like bowels don't evacuate. Since she had covid in 11/2021 she has lots of gas. Feels like she gets full quicker. Has lost at least 10 lbs unintentionally. No melena or hematochezia. Had screening colonoscopy 4 yrs ago, negative 11/2021 cbc, cmp unremarkable 03/17/21 US/Abdomen Complete IMPRESSION: Findings suggestive of a small angiomyolipoma in the upper pole of the left kidney.? No other abnormality is seen. 11/27/21?CT/Abdomen WITH IV Contrast IMPRESSION: Multiple small cysts or hemangiomas within the liver measuring up to 12 mm in diameter. Mild fatty infiltration of liver. Normal variant extrarenal pelvis left kidney. Degenerative disc disease and facet arthropathy L5-S1. ROS Const Constitutional: Positive for fatigue and weight change ENT ENT: No difficulty swallowing Gastro GI: Positive for abdominal pain, bloating, change in bowel habits, heartburn, excessive flatus and nausea/dyspepsia; No belching, change in stool character, coffee ground emesis, constipation, cramping, diarrhea, difficulty swallowing, feeling full early, incontinent of stools, Vomiting blood/hematemesis, Blood in stool, loose stools, Black,tarry stools, pain with swallowing, vomiting or other Musc Musculoskeletal: Positive for back pain and Arthritis; No joint pain Skin Skin: No yellowing of the eye or itchy eyes Psych Psychiatric: No anxiety and No depression Endo Endocrine: Positive for fatigue and weight change Aller/Imm Allergy/Immunologic: No itchy eyes Kody/Lymp Hematologic/Lymphatic: Positive for easy bleeding and easy bruising Exam Const General: cooperative, healthy appearing and no acute distress Nutritional Appearance: average body habitus Orientation: alert, awake and oriented x3 HENMT Head: normal to inspection Eyes Sclera: sclerae normal Resp Effort & Inspection: normal respiratory effort GI Inspection: normal to inspection Palpation: soft, no hepatosplenomegaly, no masses and tender in the RUQ and periumbilically Skin General: no rashes or lesions noted Neuro Gait: normal gait Quality Reporting Tobacco Screening ([facility] 138) Smoking Status: Former smoker Assessment and Plan Assessment and Plan (1) Periumbilical abdominal pain: ?Status:?Acute ?Plan: 51 yr old female with recurrent periumbilical pain and RUQ/right mid abd pain and tenderness on exam. DDx includes PUD, pancreatitis/EPI, biliary obstruction, gallbladder dysfunction. She may have some decreased GI motility following covid infection. Will gets labs, stool tests, HIDA scan. Consider MRCP. Will schedule her for EGD, with office f/u 2 wks later. (2) RUQ abdominal tenderness: ?Status:?Acute ?Plan: as above ? ? ? Orders: Orders Amylase Today R10.33 - Periumbilical pain, R10.811 - Right upper quadrant abdominal tenderness ? D Lipase Today R10.33 - Periumbilical pain, R10.811 - Right upper quadrant abdominal tenderness ? Fecal Fat, Qualitative Today R10.33 - Periumbilical pain, R10.811 - Right upper quadrant abdominal tenderness ? Pancreatic Elastase, Fecal Today R10.33 - Periumbilical pain, R10.811 - Right upper quadrant abdominal tenderness ? CRP Today R10.33 - Periumbilical pain, R10.811 - Right upper quadrant abdominal tenderness ? Erythrocyte Sed Rate Today R10.33 - Periumbilical pain, R10.811 - Right upper quadrant abdominal tenderness ? STEPHAN Comprehensive Panel Today R10.33 - Periumbilical pain, R10.811 - Right upper quadrant abdominal tenderness ? ANCA Today R10.33 - Periumbilical pain, R10.811 - Right upper quadrant abdominal tenderness ? Immunoglobulins G/A/M/E Today R10.33 - Periumbilical pain, R10.811 - Right upper quadrant abdominal tenderness ? ARIEL + Protein Elect, Serum Today R10.33 - Periumbilical pain, R10.811 - Right upper quadrant abdominal tenderness ? Hepatobilliary Img w/Pharm Int Today R10.33 - Periumbilical pain, R10.811 - Right upper quadrant abdominal tenderness ? I have examined the patient and the H&P has been reviewed. There are no clinical changes since date of exam.
--- NOTE | 2022-03-12 09:54 | OP.EGD_ITS ---
Patient Name: Saima Corbin Procedure Date: 03/12/2022 9:27 AM Date of : 1970 Age: 51 Procedure: Upper GI endoscopy Indications: Epigastric abdominal pain Providers: Jamaal Poe DO Medicines: Monitored Anesthesia Care Patient Profile: This is a 51 year old female. Refer to note in patient chart for documentation of history and physical. Patient has symptoms of chronic epigastric abdominal pain. Complications: No immediate complications. Procedure: Pre-Anesthesia Assessment: - Prior to the procedure, a History and Physical was performed, and patient medications and allergies were reviewed. The risks and benefits of the procedure and the sedation options and risks were discussed with the patient. All questions were answered and informed consent was obtained. Patient identification and proposed procedure were verified by the physician in the pre-procedure area. Mental Status Examination: normal. Prophylactic Antibiotics: The patient does not require prophylactic antibiotics. Prior Anticoagulants: The patient has taken no previous anticoagulant or antiplatelet agents. ASA Grade Assessment: I - A normal, healthy patient. After reviewing the risks and benefits, the patient was deemed in satisfactory condition to undergo the procedure. The anesthesia plan was to use monitored anesthesia care (MAC). Immediately prior to administration of medications, the patient was re-assessed for adequacy to receive sedatives. The heart rate, respiratory rate, oxygen saturations, blood pressure, adequacy of pulmonary ventilation, and response to care were monitored throughout the procedure. The physical status of the patient was re-assessed after the procedure. After obtaining informed consent, the endoscope was passed under direct vision. Throughout the procedure, the patient's blood pressure, pulse, and oxygen saturations were monitored continuously. The gastroscope was introduced through the mouth, and advanced to the lower third of esophagus. The upper GI endoscopy was accomplished without difficulty. The patient tolerated the procedure well. Scope In: 9:34:54 AM Scope Out: 9:41:19 AM Total Procedure Duration Time 0 hours 6 minutes 25 seconds Findings: LA Grade C (one or more mucosal breaks continuous between tops of 2 or more mucosal folds, less than 75% circumference) esophagitis with no bleeding was found 35 to 37 cm from the incisors. Biopsies were taken with a cold forceps for histology. Verification of patient identification for the specimen was done. Estimated blood loss was minimal. Suspect gastroparesis due to absence of peristalsis and patient symptoms. Localized mildly erythematous mucosa without active bleeding and with no stigmata of bleeding was found in the duodenal bulb. Biopsies were taken with a cold forceps for histology. Verification of patient identification for the specimen was done. Estimated blood loss was minimal. Impression: - LA Grade C erosive esophagitis. Biopsied. - Suspect gastroparesis. - Erythematous duodenopathy. Biopsied. Recommendation: - Discharge patient to home. - Resume previous diet. - Continue present medications. - Await pathology results. Procedure Code(s): --- Professional --- 22945, Esophagoscopy, flexible, transoral; with biopsy, single or multiple CPT copyright 2017 [employer]. All rights reserved. The codes documented in this report are preliminary and upon clinical coder review may be revised to meet current compliance requirements. Jamaal Poe DO 03/12/2022 9:53:57 AM This report has been signed electronically. Number of Addenda: 0 Note Initiated On: 03/12/2022 9:27 AM
--- NOTE | 2022-03-12 09:55 | OP.CCLET_ITS ---
03/12/2022 Salvatore Gonzales MD [address] [place] [address] [place] [address] Re : Upper GI endoscopy procedure for Saima Corbin Dear Dr. Gonzales This procedure was performed on Saturday, March 12, 2022. My impressions and recommendations are as follows: Impressions : - LA Grade C erosive esophagitis. Biopsied. - Suspect gastroparesis. - Erythematous duodenopathy. Biopsied. Recommendations : - Discharge patient to home. - Resume previous diet. - Continue present medications. - Await pathology results. My findings are described in the full procedure note, which is enclosed. If I can be of further assistance, please feel free to contact me at . Sincerely, Jamaal Poe, 03/12/2022 9:53:57 AM This report has been signed electronically.
== END 2022-03-12 10:35 | disposition home or self-care (01) ==
LOC: EN 08:19 → AC 08:20
PROVIDERS: PCP Internal Medicine; Referring Provider Internal Medicine; Visit Provider Internal Medicine Gastroenterology
PROC: 0DJ08ZZ Inspection of Upper Intestinal Tract, Via Natural or Artificial Opening Endoscopic (ICD-10-PCS; CPT 43235; principal; 2022-03-12 11:40)
DX: K20.80 Other esophagitis without bleeding (principal); R10.13 Epigastric pain; R10.33 Periumbilical pain; R10.11 Right upper quadrant pain; Z87.891 Personal history of nicotine dependence
CPT/HCPCS: 43239; 88305; J7120; J2405

== ENCOUNTER → 2022-03-20 | Outpatient (CLI) | payer OTHER, SELFPAY ==
--- NOTE | 2022-03-20 07:46 | NM_ITS ---
CLINICAL: 51-year-old female with history of clinical gastroparesis. SEMI-SOLID PHASE 99m Tc SULFUR COLLOID GASTRIC EMPTYING STUDY COMPARISON: None available FINDINGS: The patient was administered 1.1 mCi of 99m Tc sulfur colloid mixed with oatmeal and consumed per os. Image acquisitions in the anterior-posterior projections were obtained for 60 minutes. There is prompt visualization of the stomach. There is no gastroesophageal reflux identified. The T ? linear fit was calculated to be 52.45 minutes, (Normal: 12-56 minutes). NM/Gastric Emptying Study IMPRESSION: 1. NORMAL 99m Tc sulfur colloid semi-solid phase (oatmeal) gastric emptying imaging examination. A. There is normal and preserved semi-solid phase gastric emptying compared to normal controls. (Holden et al, J Nucl Med Tech 38: 186, 2010). Electronically Signed: Daniel Mitchell, at 21:19 EST ,
== END | disposition home or self-care (01) ==
PROVIDERS: PCP Internal Medicine; Referring Provider Nurse Practitioner Adult Health; Visit Provider Nurse Practitioner Adult Health
DX: K76.89 Other specified diseases of liver (principal)
CPT/HCPCS: 78264; A9541

== ENCOUNTER → 2022-08-20 | Outpatient (CLI) | payer OTHER, SELFPAY ==
--- NOTE | 2022-08-20 10:58 | BI_ITS ---
MAMMOGRAPHY - BILATERAL SCREENING REASON FOR EXAM: Female, 51 years old. Routine annual screening examination. PERTINENT HISTORY: Grandfather with breast cancer. History of prior right stereotactic breast biopsy. TECHNIQUE: Digital bilateral breast светлана (3D mammographic acquisition) in the CC and MLO projections. 2-D mediolateral oblique (MLO) and craniocaudad (CC) views of both breasts were obtained. CAD: Full Field Digital Mammography with Computer Added Detection was performed. COMPARISON: Comparison is made with prior study dated July 28, 2021 and July 25, 2020. FINDINGS: Breast Composition: The breasts are heterogeneously dense, which may obscure small masses. There are no dominant masses or suspicious calcifications. Tissue clip marker is once again seen in the axillary region of the right breast. No other significant abnormalities are identified. There has been no significant change since the prior study. BI/SCRN MAMM (CAD)W/СВЕТЛАНА BILAT IMPRESSION: Stable bilateral screening mammogram. Yearly follow-up mammogram recommended. (A) ASSESSMENT CATEGORY: BIRADS Category 2: Benign. A letter regarding these results will be sent to the patient by the facility within 30 days. Approximately 10% of breast cancers are not detected by mammography. A normal mammogram should not delay biopsy of a clinically suspicious abnormality. [id number] Electronically Signed: Lebron Vela MD at 12:20 EDT ,
== END | disposition home or self-care (01) ==
LOC: OPBI 10:57
PROVIDERS: PCP Internal Medicine; Referring Provider Obstetrics & Gynecology; Visit Provider Obstetrics & Gynecology
DX: Z12.31 Encounter for screening mammogram for malignant neoplasm of breast (principal)
CPT/HCPCS: 77063; 77067

== ENCOUNTER → 2022-09-05 | Outpatient (CLI) | payer OTHER, SELFPAY ==
--- NOTE | 2022-09-05 12:40 | MRI_ITS ---
STUDY: BILATERAL BREAST MR WITHOUT AND WITH CONTRAST REASON FOR EXAM: Female, 51 years old. Unexplained bruising of right breast. TECHNIQUE: Multi-sequence multi-echo imaging of both breasts was performed with a dedicated breast coil. T1-weighted and T2-weighted images were performed before the administration of contrast. T1-weighted images were also performed after the intravenous administration of 14 mL of CLARISCAN contrast. COMPARISON: Bilateral mammograms dated August 20, 2022, July 2021 and February 2020. FINDINGS: RIGHT BREAST: Scattered fibroglandular densities with minimal background enhancement. No abnormal enhancing masses or areas of non-mass enhancement in the left breast. LEFT BREAST: The breast tissue is with No abnormal enhancing masses or areas of non-mass enhancement in the left breast. Shotty lymph nodes in both axilla with enlarged or abnormal lymph nodes. No abnormality in the visualized regions of the chest or liver. MRI/Breast Bilateral W/O and W IMPRESSION: No abnormality on the breast MRI with contrast. Yearly screening mammogram recommended. CATEGORY: BIRADS Category 2: Benign. A letter regarding these results will be sent to the patient by the facility within 30 days. Electronically Signed: Bola Coker MD at 16:05 EDT ,
[2022-09-05 15:19] LABS: NATERA MAILED SPECIMEN
== END | disposition home or self-care (01) ==
PROVIDERS: PCP Internal Medicine; Referring Provider Obstetrics & Gynecology; Visit Provider Obstetrics & Gynecology
DX: R92.8 Other abnormal and inconclusive findings on diagnostic imaging of breast (principal); Z80.3 Family history of malignant neoplasm of breast; Z83.71 Family history of colonic polyps
CPT/HCPCS: 77049; A9575; A4216; C8908

== ENCOUNTER 2022-10-04 07:36 | Day surgery (SDC) | payer OTHER, SELFPAY ==
[2022-10-04 07:58] VITALS: BP 125/73; PULSE 78; RESP 16; TEMP 36.2; O2SAT 98; BMI 25.2
--- NOTE | 2022-10-04 08:09 | PCM.HP.BLA ---
History and Physical Date of Admission: 10/04/22 51 F who presents to the office today for 3 month f/u bile reflux, GERD. Cholestyramine helps but exacerbates constipation and bloating. No longer having nausea. Has only had upper abd pain once or twice since last visit. Taking cholestyramine every other day to minimize side effects. Continues PPI for GERD--LA Grade C reflux esophagitis on EGD, never had heartburn or acid reflux. EGD was indicated for burning periumbilical pain, RUQ pain, bloating, nausea. 02/2022 EGD LA grade C esophagitis, suspect gastroparesis due to absence of peristalsis, erythema without bleeding in the duodenum, bile in the duodenum; Maryjo's gland hyperplasia in the duodenum, negative Quarles's. 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 No other abnormality is seen. 11/27/21?CT/Abdomen WITH IV Contrast IMPRESSION: Multiple small cysts or hemangiomas within the liver measuring up to 12 mm in diameter. Mild fatty infiltration of liver. Normal variant extrarenal pelvis left kidney. Degenerative disc disease and facet arthropathy L5-S1. ROS Const Constitutional: No fatigue ENT ENT: No difficulty swallowing Gastro GI: Positive for change in bowel habits and constipation; No abdominal pain, belching, bloating, change in stool character, coffee ground emesis, cramping, diarrhea, heartburn, difficulty swallowing, feeling full early, excessive flatus, incontinent of stools, Vomiting blood/hematemesis, Blood in stool, loose stools, Black,tarry stools, nausea/dyspepsia, pain with swallowing, vomiting or other Musc Musculoskeletal: Positive for back pain; No joint pain Skin Skin: No yellowing of the eye or itchy eyes Psych Psychiatric: No anxiety and No depression Endo Endocrine: No fatigue Aller/Imm Allergy/Immunologic: No itchy eyes Kody/Lymp Hematologic/Lymphatic: No easy bleeding or easy bruising Exam Const General: cooperative, healthy appearing and comfortable Orientation: alert, awake and oriented x3 Quality Reporting Tobacco Screening ([facility] 138) Smoking Status: Former smoker Assessment and Plan Assessment and Plan (1) Duodenogastric bile reflux: Status: Chronic Plan: No longer has nausea or abdominal pain. Try stopping cholestyramine since it is exacerbating constipation and bloating. If symptoms return then try half dose every other day. Could change to colestipol instead of powder. (2) GERD (gastroesophageal reflux disease): Status: Chronic Plan: Continue PPI I have examined the patient and the H&P has been reviewed. There are no clinical changes since date of exam.
[2022-10-04] MEDS: Lactated Ringers 1,000 ML 15 ML IV (08:11)
[2022-10-04 09:50] VITALS: BP 113/71; BP 125/73; PULSE 79; RESP 16; TEMP 36.2; O2SAT 98
--- NOTE | 2022-10-04 09:52 | OP.CCLET_ITS ---
10/04/2022 Salvatore Gonzales MD [address] [place] [address] [place] [address] Re : Colonoscopy procedure for Saima Corbin Dear Dr. Gonzales This procedure was performed on September. My impressions and recommendations are as follows: Impressions : - The entire examined colon is normal. - Diverticulosis in the sigmoid colon. - No specimens collected. Recommendations : - Discharge patient to home. - Resume previous diet. - Continue present medications. - Repeat colonoscopy in 10 years for screening purposes. My findings are described in the full procedure note, which is enclosed. If I can be of further assistance, please feel free to contact me at . Sincerely, Jamaal Poe, 10/04/2022 9:51:38 AM This report has been signed electronically.
--- NOTE | 2022-10-04 09:52 | OP.COLON_ITS ---
Patient Name: Saima Corbin Procedure Date: 10/04/2022 9:17 AM Date of : 1970 Age: 52 Procedure: Colonoscopy Indications: Screening for colorectal malignant neoplasm Providers: Jamaal Poe DO Referring MD: Jamaal Poe DO Medicines: Monitored Anesthesia Care Patient Profile: This is a 52 year old female. Refer to note in patient chart for documentation of history and physical. Last Colonoscopy: none. The patient's first colonoscopy is today. Complications: No immediate complications. Procedure: Pre-Anesthesia Assessment: - Prior to the procedure, a History and Physical was performed, and patient medications and allergies were reviewed. The patient is competent. The risks and benefits of the procedure and the sedation options and risks were discussed with the patient. All questions were answered and informed consent was obtained. Patient identification and proposed procedure were verified by the physician in the pre-procedure area. Mental Status Examination: alert and oriented. Airway Examination: normal oropharyngeal airway and neck mobility. Respiratory Examination: clear to auscultation. CV Examination: normal. Prophylactic Antibiotics: The patient does not require prophylactic antibiotics. Prior Anticoagulants: The patient has taken no anticoagulant or antiplatelet agents. ASA Grade Assessment: II - A patient with mild systemic disease. After reviewing the risks and benefits, the patient was deemed in satisfactory condition to undergo the procedure. The anesthesia plan was to use monitored anesthesia care (MAC). Immediately prior to administration of medications, the patient was re-assessed for adequacy to receive sedatives. The heart rate, respiratory rate, oxygen saturations, blood pressure, adequacy of pulmonary ventilation, and response to care were monitored throughout the procedure. The physical status of the patient was re-assessed after the procedure. After I obtained informed consent, the scope was passed under direct vision. Throughout the procedure, the patient's blood pressure, pulse, and oxygen saturations were monitored continuously. The pediatric colonoscope was introduced through the anus and advanced to the cecum, identified by appendiceal orifice and ileocecal valve. The colonoscopy was performed without difficulty. The patient tolerated the procedure well. The quality of the bowel preparation was adequate. The terminal ileum, ileocecal valve, appendiceal orifice, and rectum were photographed. Scope In: 9:27:27 AM Scope Withdrawal Time 0 hours 9 minutes 15 seconds Scope Out: 9:43:47 AM Total Procedure Duration Time 0 hours 16 minutes 20 seconds Findings: The perianal and digital rectal examinations were normal. The colon (entire examined portion) appeared normal. No additional abnormalities were found on retroflexion. A few small-mouthed diverticula were found in the sigmoid colon. Impression: - The entire examined colon is normal. - Diverticulosis in the sigmoid colon. - No specimens collected. Recommendation: - Discharge patient to home. - Resume previous diet. - Continue present medications. - Repeat colonoscopy in 10 years for screening purposes. Procedure Code(s): --- Professional --- G0121, Colorectal cancer screening; colonoscopy on individual not meeting criteria for high risk CPT copyright 2021 [employer]. All rights reserved. The codes documented in this report are preliminary and upon bulk fluids handler review may be revised to meet current compliance requirements. Jamaal Poe DO 10/04/2022 9:51:38 AM This report has been signed electronically. Number of Addenda: 0 Note Initiated On: 10/04/2022 9:17 AM
[2022-10-04 09:55] VITALS: BP 111/68; BP 125/73; PULSE 76; RESP 16; O2SAT 98
[2022-10-04 10:00] VITALS: BP 109/73; BP 125/73; PULSE 70; RESP 16; O2SAT 100
[2022-10-04 10:05] VITALS: BP 119/72; BP 125/73; PULSE 69; RESP 16; TEMP 36.4; O2SAT 100
[2022-10-04 10:19] VITALS: BP 125/73
== END 2022-10-04 10:40 | disposition home or self-care (01) ==
LOC: EN 07:37 → AC 07:38
PROVIDERS: PCP Internal Medicine; Referring Provider Internal Medicine; Visit Provider Internal Medicine Gastroenterology
PROC: 0DJD8ZZ Inspection of Lower Intestinal Tract, Via Natural or Artificial Opening Endoscopic (ICD-10-PCS; CPT 45378; principal; 2022-10-04 08:40)
DX: Z12.11 Encounter for screening for malignant neoplasm of colon (principal); K57.30 Diverticulosis of large intestine without perforation or abscess without bleeding; Z87.891 Personal history of nicotine dependence; K21.00 Gastro-esophageal reflux disease with esophagitis, without bleeding; Z87.19 Personal history of other diseases of the digestive system
CPT/HCPCS: 45378; J7120; J2405

== ENCOUNTER → 2023-10-04 | Outpatient (CLI) | payer OTHER, SELFPAY ==
--- NOTE | 2023-10-04 09:07 | BI_ITS ---
MAMMOGRAPHY - BILATERAL SCREENING REASON FOR EXAM: Female, 53 years old. Routine annual screening examination. PERTINENT HISTORY: Grandfather with breast cancer. Prior right stereotactic breast biopsy. TECHNIQUE: Digital bilateral breast светлана (3D mammographic acquisition) in the CC and MLO projections. 2-D mediolateral oblique (MLO) and craniocaudad (CC) views of both breasts were obtained. CAD: Full Field Digital Mammography with Computer Added Detection was performed. COMPARISON: Comparison is made with prior study dated August 20, 2022 and July 28, 2021. FINDINGS: Breast Composition: There are scattered areas of fibroglandular density. There are no dominant masses or suspicious calcifications. No other significant abnormalities are identified. There has been no significant change since the prior study. BI/SCRN MAMM (CAD)W/СВЕТЛАНА BILAT IMPRESSION: Stable bilateral screening mammogram. Yearly follow-up mammogram recommended. (A) ASSESSMENT CATEGORY: BIRADS Category 1: Negative. A letter regarding these results will be sent to the patient by the facility within 30 days. Approximately 10% of breast cancers are not detected by mammography. A normal mammogram should not delay biopsy of a clinically suspicious abnormality. [id number] Electronically Signed: Lebron Vela MD at 10:34 EDT ,
== END | disposition home or self-care (01) ==
LOC: OPBI 09:06
PROVIDERS: PCP Internal Medicine; Referring Provider Obstetrics & Gynecology; Visit Provider Obstetrics & Gynecology
DX: Z12.31 Encounter for screening mammogram for malignant neoplasm of breast (principal)
CPT/HCPCS: 77063; 77067

== ENCOUNTER → 2023-10-11 | Outpatient (CLI) | payer OTHER, SELFPAY ==
[2023-10-11 12:57] LABS: Cholesterol 258 mg/dL (200); Glucose 96 mg/dL (74-106); High Density Lipoprotein 62 mg/dL; Triglycerides 136 mg/dL; Very Low Density Lipoprotein 27 mg/dL (5-40)
[2023-10-11 13:18] LABS: Vitamin D,25 Hydroxy 102.9 ng/mL
== END | disposition home or self-care (01) ==
LOC: BIMLAB 08:09
PROVIDERS: PCP Internal Medicine; Referring Provider Obstetrics & Gynecology; Visit Provider Obstetrics & Gynecology
DX: Z13.1 Encounter for screening for diabetes mellitus (principal); Z13.29 Encounter for screening for other suspected endocrine disorder; Z13.21 Encounter for screening for nutritional disorder; Z13.220 Encounter for screening for lipoid disorders
CPT/HCPCS: 36415; 80061; 82306; 82947; 84443

== ENCOUNTER → 2024-04-29 | Outpatient (CLI) | payer OTHER, SELFPAY ==
[2024-04-29 17:07] LABS: Erythrocyte Sedimentation Rate 8 mm/hr (0-30)
[2024-04-29 17:10] LABS: Absolute Lymphocyte Count 2.41 X10^3/uL (0.83-4.51); Absolute Neutrophil Count 5.1 X10^3/uL (2.0-7.7); Basophil# 0.06 X10^3/uL; Basophil% 0.7 % (0-1); Eosinophil# 0.25 X10^3/uL; Hematocrit 39.3 % (37-47); Hemoglobin 12.7 g/dL (12.0-15.0); Lymphocyte # 2.41 X10^3/ul (0.83-4.51); Lymphocyte % 28.6 % (19-41); Mean Corp Hgb Conc 32.3 g/dL (32-36); Mean Corpuscular Volume 86.8 fL (81-99); Mean Platelet Vol. 9.5 fl (6.2-12.0); Monocyte# 0.58 X10^3/uL; Monocyte% 6.9 % (0-10); NRBC Flagged by Analyzer 0 % (0-5); Neutrophil # 5.09 X10^3/uL (2.7-7.7); Neutrophil % 60.4 % (47-70); Platelet Count 259 K/mm3 (150-450); RBC Distribution Width CV 13.3 % (11.6-14.6); RBC Distribution Width SD 41.7 fl (35.1-43.9); Red Blood Count 4.53 M/mm3 (4.2-5.4); White Blood Count 8.4 K/mm3 (4.4-11.0)
[2024-04-29 18:38] LABS: ALB/GLOB Ratio 1.7 RATIO (0.9-2.4); AST(SGOT) 19 U/L (<=31); Alanine Aminotransfer ALT/SGPT 21 U/L (<=34); Albumin, Serum 4.5 g/dL (3.5-5.0); Alkaline Phosphatase 105 U/L (35-104); Anion Gap 11 (5-15); BUN 19 mg/dL (4-19); BUN/Creat Ratio 24.6 RATIO (10-20); CRP < 3.00 mg/L (0.0-3.0); Calcium,Total 9.3 mg/dL (7.6-11.0); Carbon Dioxide 25.6 mmol/L (21.0-32.0); Chloride 103 mmol/L (98-108); Creatinine, Serum 0.75 mg/dL (0.70-1.20); EST Glomerular Filtration Rate 94 (>60); Globulin 2.7 g/dL (2.2-4.2); Glucose 100 mg/dL (70-99); Protein, Total 7.2 g/dL (5.9-8.4); Sodium Level 139 mmol/L (133-145); Total Bilirubin < 0.15 mg/dL (0.00-1.30)
== END | disposition home or self-care (01) ==
LOC: LAB 16:29
PROVIDERS: PCP Internal Medicine; Referring Provider Student in an Organized Health Care Education/Training Program; Visit Provider Student in an Organized Health Care Education/Training Program
DX: R10.9 Unspecified abdominal pain (principal)
CPT/HCPCS: 36415; 80053; 85025; 85652; 86140

== ENCOUNTER 2024-07-08 05:32 | Day surgery (SDC) | payer OTHER, SELFPAY ==
[2024-07-08] VITALS (8 sets, daily range): BP systolic 91–106; BP diastolic 54–71; PULSE 67–85; RESP 16–20; TEMP 36.2–36.9; O2SAT 99–100; BMI 27.1
[2024-07-08] MEDS: Lactated Ringers 1,000 ML 15 ML IV (06:06)
--- NOTE | 2024-07-08 06:30 | EGD_PTH ---
PATIENT: FABIOLA TAYLOR LOC: EN U#:[id number] AGE/SX: 53/F ROOM: RE07/08/[address]: Dr. Jamaal Poe DO : 1970 BED: DIS: 07/08/2024 SPEC #: [id number] RECD: 07/08/24 09:07 STATUS: KATHLEEN JUANA #: [id number] MALIK: 07/08/24 06:[address]: Jamaal Poe DEPT: SURGICAL PATHOLOGY RECD BY: Michael Cardoso ENTERED: 07/08/24 10:19 SP TYPE: EGD BIOPSY SAM DR: Dr. Salvatore Gonzales MD Tissues: A - Duodenum, NOS B - Gastric mucous membrane C - Esophagus, NOS D - Ileum, NOS E - Transverse colon Procedures: Immunohistochemical Stains Surgery Specimen Level IV HEADER OPERATION: Colonoscopy with biopsy and electrohemostasis, EGD PRE-OP DIAGNOSIS: Screen for colon cancer, constipation, esophagitis, duodenogastric bile reflux TISSUE SUBMITTED: A- Duodenum biopsy, B- Gastric body biopsy, C- Distal esophagus biopsy, D- Terminal ileum biopsy, E- Transverse colon polyp biopsy MICROSCOPIC DIAGNOSIS A. Small bowel, duodenum, biopsy: Normal villous architecture with Maryjo gland hyperplasia. Negative for increased intraepithelial lymphocytes. B. Stomach, gastric body, biopsy: Oxyntic mucosa with features of reactive gastropathy. IHC negative for H.pylori organisms. C. Esophagus, distal, biopsy: Squamous mucosa with reactive changes. Columnar mucosa negative for goblet cell metaplasia. D. Small bowel, terminal ileum, biopsy: Normal villous morphology with no specific pathologic change. E. Transverse colon, polyp, biopsy: Inflammatory polyp. MICROSCOPIC DESCRIPTION Slides are reviewed. All matched controls reacted appropriately. These tests were developed and their performance characteristics determined by [facility]. They may not have been cleared or approved by the U.S. Food and Drug Administration. The FDA has determined that such clearance or approval is not necessary. The above immunohistochemical/dualISH markers are ordered and reviewed by the Pathologist. GROSS DESCRIPTION A. Received in formalin in a container labeled with the patient's name, date of , and duodenum biopsy are multiple small bonner-pink fragments of mucosal tissue measuring 0.5 x 0.5 x 0.2 cm in aggregate. Submitted in toto in A1. B. Received in formalin in a container labeled with the patient's name, date of , and gastric body biopsy for H. pylori and path are multiple bonner-pink fragments of mucosal tissue measuring 1.3 x 0.5 x 0.2 cm in aggregate. Submitted in toto in B1. C. Received in formalin in a container labeled with the patient's name, date of , and distal esophagus biopsy are 2 small bonner-pink fragments of mucosal tissue each measuring 0.3 x 0.2 x 0.2 cm. Submitted in toto in C1. D. Received in formalin in a container labeled with the patient's name, date of , and terminal ileum biopsy are 2 bonner-pink fragments of mucosal tissue each measuring 0.4 x 0.3 x 0.2 cm. Submitted in toto in D1. E. Received in formalin in a container labeled with the patient's name, date of , and transverse colon polyp biopsy is a 0.4 x 0.3 x 0.3 cm fragment of bonner-pink mucosal tissue. Submitted in toto in E1. [facility] 07-08-2024 CPT:[id number]
--- NOTE | 2024-07-08 06:42 | PRE.ANES_ITS ---
ASA Classification* ASA Classification ASA Classification: 2 Assessment & Plan Anesthesia* Anesthesia Assessment Anesthesia Assessment: Discussed sedation and/or anesthesia options, risks, benefits, and alternatives with patient/parents/legal guardian/POA. Questions invited. The patient/parents/legal guardian/POA seems to understand and agrees to proceed with anesthesia plan. Reviewed the physical assessment, medical history, allergy history and patient home medications list prior to surgery/procedure/anesthetic and documented any changes. Performed airway and anesthesia risk assessments. Anesthesia Type Anesthesia Type: MAC Anesthesia Focused Assessment* Temperature: 98.5 F Pulse Rate: 85 Blood Pressure: 106/71 Respiratory Rate: 18 Pulse Ox: 100 Airway Assessment Mouth opens: >3 cm Mallampati Score: II Focused Labs Anesthesia Preop lab: CBC WBC 8.4 K/mm3 (4.4-11.0) 04/29/24 16:43 04/29/24 RBC 4.53 M/mm3 (4.2-5.4) 04/29/24 16:43 04/29/24 Hgb 12.7 g/dL (12.0-15.0) 04/29/24 16:43 04/29/24 Hct 39.3 % (37-47) 04/29/24 16:43 04/29/24 Plt Count 259 K/mm3 (150-450) 04/29/24 16:43 04/29/24 CHEMISTRY Potassium 4.0 mmol/L (3.3-5.1) 04/29/24 16:43 04/29/24 Sodium 139 mmol/L (133-145) 04/29/24 16:43 04/29/24 BUN 19 mg/dL (4-19) 04/29/24 16:43 04/29/24 Creatinine 0.75 mg/dL (0.70-1.20) 04/29/24 16:43 04/29/24 Glucose 100 mg/dL (70-99) H 04/29/24 16:43 04/29/24 TSH 1.690 uIU/mL (0.358-3.740) 10/11/23 08:09 09/19 05/11 COAG Urine Test Negative Negative 09/22/12 13:03 08/05/13 Pre-Assessment Diagnosis/Proposed Procedure Planned Operative Procedure(s): COLON,EGD Anesthesia History Anesthesia History - mental health practitioner: Anesthesia History - mental health practitioner Hx Hospitalization No 07/07/24 09:01 Any Problems With Anesthesia No 07/07/24 09:01 Cholinesterase deficiency No 07/07/24 09:01 You/Your Family Experience No 07/07/24 09:01 fever (hyperthermia) with Relationship Recent Exposure to Contagious No 07/08/24 05:57 Disease Does patient have nerve No 07/07/24 09:01 stimulator Patient instructed to have device shut off --Does patient have Pacemaker No 07/08/24 05:57 or ICD? When Was Last Pacemaker Check QUESTION #4 FULL TEXT: You/Your Family Experience fever (hyperthermia) with Anesthesia Last Oral Intake Last Oral intake: Last Oral Intake NPO since 03:30 07/08/24 05:57 Meds taken in AM with sips of water? Meds patient instructed to take am of surgery PONV PONV - mental health practitioner: PONV - mental health practitioner Female Yes 07/07/24 09:01 HX of Motion Sickness No 07/07/24 09:01 HX of N/V After Surgery No 07/07/24 09:01 Non-Smoker Yes 07/07/24 09:01 Duration of Surgery greater No 07/07/24 09:01 than 60 minutes Number of Risk Factors 2 07/07/24 09:01 PONV Score Moderate Risk 07/07/24 09:01 Height & Weight Height & Weight: Anesthesia: Height & Weight Height 5 ft 5 in 07/08/24 05:57 Weight: 74 kg 07/08/24 05:57 Body Mass Index (BMI) 27.1 07/08/24 05:57 Respiratory Assessment Respiratory Assessment - mental health practitioner: Respiratory Tract Infection Hx - mental health practitioner Hx Respiratory Tract Infection No 07/07/24 09:01 STOP Sleep Apnea STOP Sleep Apnea - mental health practitioner: STOP Sleep Apnea - mental health practitioner Hx Hypertension No 07/07/24 09:01 Hx Sleep Apnea No 07/07/24 09:01 CPAP No 07/07/24 09:01 BIPAP Do you snore loudly (louder No 07/07/24 09:01 than talking or can be heard Do you often feel tired/ No 07/07/24 09:01 fatigued/ sleepy during daytime? Has anyone observed you stop No 07/07/24 09:01 breathing during sleep? STOP Results Negative 07/07/24 09:01 QUESTION #5 FULL TEXT : Do you snore loudly (louder than talking or can be heard through closed doors)? 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 Specify any problems Hx of Preganancy in last 3 No 07/07/24 09:01 Months Nurse Filling Out Transfusion VCHRISTIN 07/07/24 09:01 & Questions: Date: 07/07/24 07/07/24 09:01 Time: 09:02 07/07/24 09:01 Patient unable to answer at this time (ie. confused, unrespo /Reproduction History /Reproductive History - mental health practitioner: /Reproductive Hx- mental health practitioner Hx Now No 07/07/24 09:01 Gestational Age (in weeks): EDC: Hx Hx Para Hx Section SAB No 07/07/24 09:01 Active Medications Active Medications: Current Medications Generic Name Dose Route Start Last Admin Trade Name Freq PRN Reason Stop Dose Admin Lactated Ringer's 1,000 mls @ 15 mls/hr 07/08/24 05:45 07/08/24 06:06 IV 15 mls/hr .Q48H RHYS Administration PFSH Medical History Arthritis Low iron Easy bruising Back pain History of diverticulitis Wears contact lenses Wears glasses Post-menopausal Cancer Alcohol use History of irregular heartbeat Anemia Migraine headache Former smoker History of echocardiogram Angiomyolipoma of right kidney GERD (gastroesophageal reflux disease) Nausea Chronic RLQ pain COVID-19 Overweight (BMI 25.0-29.9) Facial lesion Fatigue Vision problems Skin cancer Chronic headaches Anemia Home Medications ?Medication ?Instructions ?Recorded ?Last Taken ?Type plexis dietary supplement 1 dose PO DAILY 10/14/18 History PLEXUS PREBIOTIC 1 cap PO DAILY 09/27/2206/19 History ascorbic acid (vitamin C) 500 mg 500 mg PO DAILY 10/0307/07/24 History capsule echinacea 400 mg capsule 800 mg PO BID 10/04/2307/07 History omeprazole 40 mg capsule,delayed 40 mg PO QDAY #30 cap s 07/01/24 07/07/24 Rx release cyanocobalamin (vitamin B-12) 2,000 mcg PO DAILY 07/0707/07/24 History 1,000 mcg tablet (Vitamin B-12) ferrous gluconate 324 mg (37.5 mg 324 mg PO DAILY 06/1907/03/24 History iron) tablet magnesium oxide 375 mg PO DAILY 07/07/24 History polyethylene glycol 3350 17 17 g PO DAILY 07/07/24 History gram/dose oral powder (ClearLax) vitamin D3 1,250 mcg (50,000 1 cap PO DAILY 07/07/24 0 07/07/24 History unit)-vitamin K2 200 mcg capsule Allergy/AdvReac Type Severity Reaction Status Date / Time No Known Allergies Allergy Verified 07/08/24 05:55 Family History Mother Hypertension Heart disease Colon cancer Arthritis Depression COPD (chronic obstructive pulmonary disease) High cholesterol History of bowel resection Grandfather Testicular cancer Colon cancer Myocardial infarction Grandmother Heart disease Myocardial infarction Sister Colon cancer Father Suicide Surgical History Hx of colonoscopy S/P breast biopsy Hx of foot surgery S/P colonoscopy (~10/16/17) S/P partial hysterectomy H/O prior ablation treatment skin cancer removed Status post surgical removal of ganglion cyst S/P right knee surgery Social History Smoking Status: Former smoker alcohol intake: current details: occasionally substance use type: does not use caffeine: Yes what type of physical activity do you participate in: walking frequency: daily seatbelt use: always do you feel safe at home: Yes additional social history: - 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
--- NOTE | 2024-07-08 06:47 | PCM.HP.STD ---
[facility] - General General Date of Admission: 07/08/24 Date of Service: 07/08/24 Chief Complaint: Abdominal pain, GERD and screening colonoscopy HPI Narrative FABIOLA TAYLOR, is a 53 F who presents Abdominal pain, GERD and screening colonoscopy 03/17/21 US/Abdomen Complete IMPRESSION: Findings suggestive of a small angiomyolipoma in the upper pole of the left kidney. No other abnormality is seen. 11/27/21 CT/Abdomen WITH IV Contrast IMPRESSION: Multiple small cysts or hemangiomas within the liver measuring up to 12 mm in diameter. Mild fatty infiltration of liver. Normal variant extrarenal pelvis left kidney. Degenerative disc disease and facet arthropathy L5-S1. EGD 03.12.22; Impression: - LA Grade C erosive esophagitis. Biopsied. - Suspect gastroparesis. - Erythematous duodenopathy. Biopsied. Colonoscopy 10.04.22; - The entire examined colon is normal. - Diverticulosis in the sigmoid colon. - No specimens collected. OV 3.. Over the past year past has been having progressively worsening constipation. Prior to this she was never constipated. SHe is having about 1 bm per week. She has tried lifestyle changes like increasing her movement, adding fiber and drinking more water. This has helped in the past but is no longer working. She has had to resort to laxatives on occasion but does not want to do this on a consistent basis. She has some upper abd pain and bloating. She does not have heartburn and never has although she has had erosive esophagitis in the past. She has no known family hx of colon cancer. Plan; -CBC -CMP -scopes [facility] Medical History Arthritis Low iron Easy bruising Back pain History of diverticulitis Wears contact lenses Wears glasses Post-menopausal Cancer Alcohol use History of irregular heartbeat Anemia Migraine headache Former smoker History of echocardiogram Angiomyolipoma of right kidney GERD (gastroesophageal reflux disease) Nausea Chronic RLQ pain COVID-19 Overweight (BMI 25.0-29.9) Facial lesion Fatigue Vision problems Skin cancer Chronic headaches Anemia Home Medications ?Medication ?Instructions ?Recorded ?Last Taken ?Type plexis dietary supplement 1 dose PO DAILY 10/14/18 07/07/24 History PLEXUS PREBIOTIC 1 cap PO DAILY 09/27/22 07/07/24 History ascorbic acid (vitamin C) 500 mg 500 mg PO DAILY 10/04/23 07/07/24 History capsule echinacea 400 mg capsule 800 mg PO BID 10/04/23 07/07/24 History omeprazole 40 mg capsule,delayed 40 mg PO QDAY #30 caps 07/01/24 07/07/24 Rx release cyanocobalamin (vitamin B-12) 2,000 mcg PO DAILY 07/07/24 07/07/24 History 1,000 mcg tablet (Vitamin B-12) ferrous gluconate 324 mg (37.5 mg 324 mg PO DAILY 07/07/24 07/03/24 History iron) tablet magnesium oxide 375 mg PO DAILY 07/07/24 07/06/24 History polyethylene glycol 3350 17 17 g PO DAILY 07/07/24 07/07/24 History gram/dose oral powder (ClearLax) vitamin D3 1,250 mcg (50,000 1 cap PO DAILY 07/07/24 07/07/24 History unit)-vitamin K2 200 mcg capsule Allergy/AdvReac Type Severity Reaction Status Date / Time No Known Allergies Allergy Verified 07/08/24 05:55 Family History Mother Hypertension Heart disease Colon cancer Arthritis Depression COPD (chronic obstructive pulmonary disease) High cholesterol History of bowel resection Grandfather Testicular cancer Colon cancer Myocardial infarction Grandmother Heart disease Myocardial infarction Sister Colon cancer Father Suicide Surgical History Hx of colonoscopy S/P breast biopsy Hx of foot surgery S/P colonoscopy (~10/16/17) S/P partial hysterectomy H/O prior ablation treatment skin cancer removed Status post surgical removal of ganglion cyst S/P right knee surgery Social History Smoking Status: Former smoker alcohol intake: current details: occasionally substance use type: does not use caffeine: Yes what type of physical activity do you participate in: walking frequency: daily seatbelt use: always do you feel safe at home: Yes additional social history: - [employer] 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 [employer] Constitutional Constitutional: Denies fatigue, fever(s), poor appetite, weight gain or weight loss Gastrointestinal Gastrointestinal: Denies belching, bloating, change in bowel habits, change in stool character, chewing difficulty, coffee ground emesis, constipation, cramping, diarrhea, dyspepsia, dysphagia, early satiety, excessive flatus, fecal incontinence, heartburn, hematemesis, hematochezia, hemorrhoids, loose stools, melena, nausea, odynophagia, rectal bleeding, tenesmus, vomiting or weight changes Vital Signs Vital Signs Vital Signs: 07/08/24 05:57 07/08/24 05:57 07/08/24 06:42 Temperature 98.5 F 98.5 F Temperature Source Temporal Pulse Rate 85 85 Respiratory Rate 18 18 Respiratory Pattern Normal Blood Pressure 106/71 106/71 Blood Pressure Mean 82 Blood Pressure Source Monitor Blood Pressure Position Semi-Fowlers Blood Pressure Location Left Arm Pulse Ox 100 100 Oxygen Delivery Method Room Air Weight Weight: 163 lb 2.273 oz Body Mass Index (BMI) 27.1 Physical Exam Const alert, oriented x3, no apparent distress and healthy appearing General Appearance: cooperative GI normal to inspection, nondistended, normoactive bowel sounds, soft to palpation, non-tender and non-distended Percussion: normal to percussion Rectal Exam: deferred Assessment & Plan Assessment/Plan (1) Screen for colon cancer: (2) Constipation: (3) Esophagitis: (4) Duodenogastric bile reflux: PLAN: Assessment and Plan Assessment and Plan (1) Abdominal pain: Status: Chronic Plan: This is a 53 yo female pt here today for f/u. Pt originally established with [facility] in 2021 for abd pain. Today she is here for evaluation of constipation over the past year. Last colonoscopy in 2022 was without abnormalities. However, since pt has never had constipation prior to this I think she needs to undergo repeat colonoscopy. She is agreeable and will be scheduled for this. Pt has a hx of erosive esophagitis. SHe has no complaints of heartburn but does have some epigastric pain. She will have EGD at the same time as colonoscopy. In the mean time, she will take miralax daily and magnesium oxide. She will update me in one week. If she continues to have constipation, we will consider Linzess. I ordered CBC, CMP, ESR and CRP. -EGD and colonoscopy -Miralax daily -Consider Linzess -CBC, CMP, ESR and CRP (2) Constipation: Status: Acute Orders: Orders CBC W/Diff, Automated Today R10.9 - Unspecified abdominal pain Comprehensive Metabolic Profil Today R10.9 - Unspecified abdominal pain CRP Today R10.9 - Unspecified abdominal pain Erythrocyte Sed Rate Today R10.9 - Unspecified abdominal pain
--- NOTE | 2024-07-08 07:32 | OP.EGD_ITS ---
Patient Name: Saima Corbin Procedure Date: 07/08/2024 6:16 AM Date of : 1970 Age: 53 Procedure: Upper GI endoscopy Indications: Epigastric abdominal pain, Heartburn, Esophageal reflux Providers: Jamaal Poe DO Referring MD: Salvatore Gonzales MD Medicines: Monitored Anesthesia Care Patient Profile: This is a 53 year old female. Refer to note in patient chart for documentation of history and physical. Patient has symptoms of acute abdominal cramping, acute epigastric abdominal pain and chronic nausea. Complications: No immediate complications. Procedure: Pre-Anesthesia Assessment: - Prior to the procedure, a History and Physical was performed, and patient medications and allergies were reviewed. The patient is competent. The risks and benefits of the procedure and the sedation options and risks were discussed with the patient. All questions were answered and informed consent was obtained. Patient identification and proposed procedure were verified by the physician in the pre-procedure area. Mental Status Examination: alert and oriented. Airway Examination: normal oropharyngeal airway and neck mobility. Respiratory Examination: clear to auscultation. CV Examination: normal. Prophylactic Antibiotics: The patient does not require prophylactic antibiotics. Prior Anticoagulants: The patient has taken no anticoagulant or antiplatelet agents. ASA Grade Assessment: II - A patient with mild systemic disease. After reviewing the risks and benefits, the patient was deemed in satisfactory condition to undergo the procedure. The anesthesia plan was to use monitored anesthesia care (MAC). Immediately prior to administration of medications, the patient was re-assessed for adequacy to receive sedatives. The heart rate, respiratory rate, oxygen saturations, blood pressure, adequacy of pulmonary ventilation, and response to care were monitored throughout the procedure. The physical status of the patient was re-assessed after the procedure. After obtaining informed consent, the endoscope was passed under direct vision. Throughout the procedure, the patient's blood pressure, pulse, and oxygen saturations were monitored continuously. The Colonoscope was introduced through the mouth, and advanced to the third part of the duodenum. Small bowel enteroscopy was deemed necessary. The upper GI endoscopy was accomplished without difficulty. The patient tolerated the procedure well. Scope In: 6:59:26 AM Scope Out: 7:04:42 AM Total Procedure Duration Time 0 hours 5 minutes 16 seconds Findings: LA Grade A (one or more mucosal breaks less than 5 mm, not extending between tops of 2 mucosal folds) esophagitis with no bleeding was found 37 to 40 cm from the incisors. Biopsies were taken with a cold forceps for histology. Verification of patient identification for the specimen was done. Estimated blood loss was minimal. Patchy mildly erythematous mucosa without bleeding was found in the gastric body. Biopsies were taken with a cold forceps for histology. Verification of patient identification for the specimen was done. Estimated blood loss was minimal. Biopsies were taken with a cold forceps for Helicobacter pylori testing. Verification of patient identification for the specimen was done. Estimated blood loss was minimal. Patchy mildly erythematous mucosa without active bleeding and with no stigmata of bleeding was found in the duodenal bulb. Biopsies were taken with a cold forceps for histology. Verification of patient identification for the specimen was done. Estimated blood loss was minimal. Impression: - LA Grade A reflux esophagitis with no bleeding. Biopsied. - Erythematous mucosa in the gastric body. Biopsied. - Erythematous duodenopathy. Biopsied. Recommendation: - Discharge patient to home. - Resume previous diet. - Continue present medications. - Await pathology results. Procedure Code(s): --- Professional --- 45781, Small intestinal endoscopy, enteroscopy beyond second portion of duodenum, not including ileum; with biopsy, single or multiple CPT copyright 2021 [employer]. All rights reserved. The codes documented in this report are preliminary and upon council member review may be revised to meet current compliance requirements. Jamaal Poe DO 07/08/2024 7:31:45 AM This report has been signed electronically. Number of Addenda: 0 Note Initiated On: 07/08/2024 6:16 AM
--- NOTE | 2024-07-08 07:32 | OP.CCLET_ITS ---
07/08/2024 Salvatore Gonzales MD [address] [place] [address] [place] [address] Re : Upper GI endoscopy procedure for Saima Corbin Dear Dr. Gonzales This procedure was performed on Monday, July 08, 2024. My impressions and recommendations are as follows: Impressions : - LA Grade A reflux esophagitis with no bleeding. Biopsied. - Erythematous mucosa in the gastric body. Biopsied. - Erythematous duodenopathy. Biopsied. Recommendations : - Discharge patient to home. - Resume previous diet. - Continue present medications. - Await pathology results. My findings are described in the full procedure note, which is enclosed. If I can be of further assistance, please feel free to contact me at . Sincerely, Jamaal Poe, 07/08/2024 7:31:45 AM This report has been signed electronically.
--- NOTE | 2024-07-08 07:32 | PCM.POST.ANE ---
Anesthesia: Postop Eval I Current Vital Signs Temperature: 97.2 F Pulse Rate: 67 Blood Pressure: 91/54 Respiratory Rate: 16 Pulse Ox: 100 Oxygen Delivery Method: Room Air Assessment Airway patent: Yes Spontaneous unlabored respirations: Yes Mental status: Awake and Calm nausea: No Vomiting: No Anesthesia Complication: No Fluid Hydration Crystalloid volume administer (ml): 800 Total IV fluid infused: 800 Progress Note Anesthesia document: Postop Eval 1 completed: Yes
--- NOTE | 2024-07-08 07:34 | OP.CCLET_ITS ---
07/08/2024 Salvatore Gonzales MD [address] [place] [address] [place] [address] Re : Colonoscopy procedure for Saima Corbin Dear Dr. Gonzales This procedure was performed on Monday, July 08, 2024. My impressions and recommendations are as follows: Impressions : - One 8 mm polyp in the transverse colon, removed with a jumbo cold forceps. Resected and retrieved. - The examination was otherwise normal on direct and retroflexion views. - Mild inflammation was found in the ileum secondary to ileitis. Biopsied. Recommendations : - Discharge patient to home. - Resume previous diet. - Continue present medications. - Await pathology results. - Repeat colonoscopy in 5 years for surveillance. My findings are described in the full procedure note, which is enclosed. If I can be of further assistance, please feel free to contact me at . Sincerely, Jamaal Friend, 07/08/2024 7:34:07 AM This report has been signed electronically.
--- NOTE | 2024-07-08 07:34 | OP.COLON_ITS ---
Patient Name: Saima Corbin Procedure Date: 07/08/2024 7:04 AM Date of : 1970 Age: 53 Procedure: Colonoscopy Indications: Screening for colorectal malignant neoplasm Providers: Jamaal Poe DO Referring MD: Salvatore Gonzales MD Medicines: Monitored Anesthesia Care Patient Profile: This is a 53 year old female. Refer to note in patient chart for documentation of history and physical. Patient has symptoms of acute abdominal cramping, acute epigastric abdominal pain and chronic nausea. Last Colonoscopy: several years ago. Complications: No immediate complications. Procedure: Pre-Anesthesia Assessment: - Prior to the procedure, a History and Physical was performed, and patient medications and allergies were reviewed. The patient is competent. The risks and benefits of the procedure and the sedation options and risks were discussed with the patient. All questions were answered and informed consent was obtained. Patient identification and proposed procedure were verified by the physician in the pre-procedure area. Mental Status Examination: alert and oriented. Airway Examination: normal oropharyngeal airway and neck mobility. Respiratory Examination: clear to auscultation. CV Examination: normal. Prophylactic Antibiotics: The patient does not require prophylactic antibiotics. Prior Anticoagulants: The patient has taken no anticoagulant or antiplatelet agents. ASA Grade Assessment: II - A patient with mild systemic disease. After reviewing the risks and benefits, the patient was deemed in satisfactory condition to undergo the procedure. The anesthesia plan was to use monitored anesthesia care (MAC). Immediately prior to administration of medications, the patient was re-assessed for adequacy to receive sedatives. The heart rate, respiratory rate, oxygen saturations, blood pressure, adequacy of pulmonary ventilation, and response to care were monitored throughout the procedure. The physical status of the patient was re-assessed after the procedure. After I obtained informed consent, the scope was passed under direct vision. Throughout the procedure, the patient's blood pressure, pulse, and oxygen saturations were monitored continuously. The Colonoscope was introduced through the anus and advanced to the terminal ileum. The colonoscopy was performed without difficulty. The patient tolerated the procedure well. The quality of the bowel preparation was good. The terminal ileum, ileocecal valve, appendiceal orifice, and rectum were photographed. Scope In: 7:06:03 AM Scope Withdrawal Time 0 hours 10 minutes 38 seconds Scope Out: 7:22:17 AM Total Procedure Duration Time 0 hours 16 minutes 14 seconds Findings: The perianal and digital rectal examinations were normal. An 8 mm polyp was found in the transverse colon. The polyp was sessile. The polyp was removed with a jumbo cold forceps. Resection and retrieval were complete. Verification of patient identification for the specimen was done. Estimated blood loss was minimal. The exam was otherwise without abnormality on direct and retroflexion views. Patchy mild inflammation characterized by congestion (edema) was found in the terminal ileum. Biopsies were taken with a cold forceps for histology. Verification of patient identification for the specimen was done. Estimated blood loss was minimal. Impression: - One 8 mm polyp in the transverse colon, removed with a jumbo cold forceps. Resected and retrieved. - The examination was otherwise normal on direct and retroflexion views. - Mild inflammation was found in the ileum secondary to ileitis. Biopsied. Recommendation: - Discharge patient to home. - Resume previous diet. - Continue present medications. - Await pathology results. - Repeat colonoscopy in 5 years for surveillance. Procedure Code(s): --- Professional --- 60741, Colonoscopy, flexible; with biopsy, single or multiple CPT copyright 2021 [employer]. All rights reserved. The codes documented in this report are preliminary and upon rectification printer review may be revised to meet current compliance requirements. Jamaal Poe DO 07/08/2024 7:34:07 AM This report has been signed electronically. Number of Addenda: 0 Note Initiated On: 07/08/2024 7:04 AM
--- NOTE | 2024-07-08 08:49 | PCM.POSTANE2 ---
Anesthesia Postop Eval I Sum Postop Eval Completion status Anesthesia document: Postop Eval 1 completed: Yes Anesthesia Postop Eval I Summary Anesthesia Postop Eval I Summary: Anesthesia Postop Eval I: Assessment Summary Airway patent Yes 07/08/24 07:33 [email or web address] Spontaneous unlabored Yes 07/08/24 07:33 [email or web address] respirations Mental status Awake,Calm 07/08/24 07:33 [email or web address] nausea No 07/08/24 07:33 [email or web address] Vomiting No 07/08/24 07:33 [email or web address] Anesthesia Postop Eval I: Fluid Summary Crystalloid volume administer 800 07/08/24 07:33 [email or web address] (ml) Colloids volume administered ( ml) Blood Product volume administered (ml) Total IV fluid infused 800 07/08/24 07:33 [email or web address] Anesthesia Postop Eval I: Summary Notes Anesthesia Complication No 07/08/24 07:33 [email or web address] Anesthesia Complication Comment: Post-operative progress note Anesthesia: Postop Eval II Evaluation Mental status: Awake Pain Level: 0 nausea: No Vomiting: No
== END 2024-07-08 08:21 | disposition home or self-care (01) ==
LOC: EN 05:33 → AC 05:35
PROVIDERS: PCP Internal Medicine; Referring Provider Internal Medicine; Visit Provider Internal Medicine Gastroenterology
PROC: 0DJD8ZZ Inspection of Lower Intestinal Tract, Via Natural or Artificial Opening Endoscopic (ICD-10-PCS; CPT 45378; principal; 2024-07-08 06:25)
DX: Z12.11 Encounter for screening for malignant neoplasm of colon (principal); K21.00 Gastro-esophageal reflux disease with esophagitis, without bleeding; Z87.891 Personal history of nicotine dependence; K59.00 Constipation, unspecified; K52.9 Noninfective gastroenteritis and colitis, unspecified; Z79.899 Other long term (current) drug therapy; K63.5 Polyp of colon
CPT/HCPCS: 45380; 43239; 88305; 88342; C1889; J2405

== ENCOUNTER → 2024-10-06 | Outpatient (CLI) | payer OTHER, SELFPAY ==
--- NOTE | 2024-10-06 08:00 | BI_ITS ---
EXAM: SCRN MAMM (CAD)W/СВЕТЛАНА BILAT DATE: 10/06/2024 CLINICAL HISTORY: F, Age 54 y/o , SCREEN FOR BREAST CANCER Grandfather with breast cancer. History of prior right stereotactic breast biopsy. TECHNIQUE: SCRN MAMM (CAD)W/СВЕТЛАНА BILAT COMPARISON: Prior exam(s) dated October 04, 2023.. FINDINGS: TISSUE DENSITY: There are scattered areas of fibroglandular density. Bilateral Breast Mammographic Findings: No significant masses, calcifications or other abnormalities are identified. Stable asymmetry of breast tissue were more breast tissue is seen in the upper-outer quadrant of the left breast as compared to the right side. Stable fat containing bilateral axillary lymph nodes. No suspicious masses, areas of developing architectural distortion, or suspicious calcifications. There has been no significant interval change. BI/SCRN MAMM (CAD)W/СВЕТЛАНА BILAT IMPRESSION: Stable examination. OVERALL FINAL ASSESSMENT BI-RADS 2: BENIGN RECOMMENDATION: Routine annual follow-up in 1 Year A letter with findings and recommendations will be mailed to the patient. Reading Location: [id number]
== END | disposition home or self-care (01) ==
LOC: OPBI 07:58
PROVIDERS: PCP Internal Medicine; Referring Provider Obstetrics & Gynecology; Visit Provider Obstetrics & Gynecology
DX: Z12.31 Encounter for screening mammogram for malignant neoplasm of breast (principal)
CPT/HCPCS: 77063; 77067